=== PATIENT | male | born 1950 | race Caucasian/White ===

== ENCOUNTER → 2018-07-20 | Outpatient (CLI) | payer OTHER ==
[~2018-07-20] MED LIST: ALLOPURINOL 10100 M1 PO; GLUMETZA500 PO; GLYBURIDE 5 MG T5 M1 PO; LEVOTHYROXINE0.05 MG PO; LOSARTAN-HCTZ1 EAC2 PO; LOVASTAT20 PO
--- NOTE | ~2018-07-20 | EEG ---
[address] [address] EEG STUDY REPORT Name: KIKO SALDANA Room: [facility]#: [id number] Admission: 07/20/18 Attend Phys: Rad Larkin MD Discharge: Date of : 46 Report #: [id number] THIS REPORT FOR: //name// CC: Rad Larkin DATE OF SERVICE: 07/20/2018 This patient is being evaluated for tremor. EEG was done by placing the electrodes by standard 10-20 system of electrode placement. Both referential and sequential montages were used for recording. Background activity in this patient's EEG is about 10-11 Hz and 30 microvolt. The patient became drowsy and that is associated with bilateral slowing and vertex sharp waves. Photic stimulation was unremarkable. Throughout the record, no active epileptiform activity was noticed. IMPRESSION: This patient's EEG is within normal limits. Thank you very much for this referral. By: [id number] Lamas MD /nt
== END ==
LOC: M.MRI 07-08 12:09 → M.CRD 13:00 → M.MRI 14:30
DX: R25.1 Tremor, unspecified (principal); E11.9 Type 2 diabetes mellitus without complications; E03.9 Hypothyroidism, unspecified

== ENCOUNTER 2019-10-22 06:50 | Inpatient (IN) | payer OTHER ==
[~2019-10-22] VITALS: Ht 182.9 cm; Wt 90.3 kg
--- NOTE | ~2019-10-22 | CON ---
[address] [address] CONSULTATION Name: KIKO SALDANA Room: [address] IN M.R.#: [id number] Admission: 10/22/19 Attend Phys: Lee Hameed MD Discharge: Date of : 46 Report #: [id number] THIS REPORT FOR: //name// cc: Rad Larkin MD, David L. MD ~ THIS REPORT FOR: //name// CC: Rad Hameed DATE OF SERVICE: 10/23/2019 NEPHROLOGY CONSULTATION CONSULTING PHYSICIAN: Dr. Hameed. REASON FOR NEPHROLOGY CONSULTATION: Elevated creatinine. REASON FOR ADMISSION: Weakness and hypoglycemia. HISTORY OF PRESENT ILLNESS: This is a 69-year-old male with past medical history of type 2 diabetes, the patient states that it is usually controlled, denies having retinopathy, history of parkinsonism, remote history of kidney stones that was many years ago, history of proteinuria and his baseline creatinine is not known, came in because of feeling very weak. His blood sugar was found to be low, it was around 59. He was given dextrose water and his sugars are better this morning. His metformin was also held. His blood pressure was also found to be elevated 195 systolic and he was given hydralazine IV pushes. His losartan/hydrochlorothiazide was held. He denies using any NSAIDs at home. Denies having any kidney problems, but again as mentioned before his baseline creatinine is not known. He has also been having some swelling around his ankles. No shortness of breath and no heart problems that he reports of. His potassium has also been running towards the lower side. He lives with his at home and does not drink much water. For the last couple of months, he has been having stools once a day, but this has been a little bit loose. ALLERGIES: No known drug allergies. REVIEW OF SYSTEMS: As mentioned in history of present illness, otherwise 10-point review of systems done, negative. PAST MEDICAL AND SURGICAL HISTORY: Includes Parkinson disease, history of kidney stones that was many years ago, diabetes type 2 denies having retinopathy, hypertension, and likely chronic kidney disease, his creatinine was 1.5 in 2016 and is 2.0 [place] [address] CONSULTATION Name: KIKO SALDANA Room: [address]#: [id number] Admission: 10/22/19 Attend Phys: Lee Hameed MD Discharge: Date of : 46 Report #: [id number] HOME MEDICATIONS: Include metformin, glyburide, levothyroxine, lovastatin, losartan, hydrochlorothiazide, and allopurinol. FAMILY HISTORY: Reviewed, noncontributory in this situation. SOCIAL HISTORY: He is a former smoker, does not use recreational drugs. Does not use alcohol. PHYSICAL EXAMINATION: VITAL SIGNS: Blood pressure is 176/70, pulse rate is 86, temperature is 36.9, respiratory rate is 18, and pulse ox was 100% on room air. GENERAL: He is awake, alert, and oriented x 3. HEAD AND EYES: Atraumatic, normocephalic. EARS, NOSE, AND THROAT: Normal ears and nose. Mucous membranes are moist. NECK: No JVD. CHEST: Bilaterally clear to auscultation anteriorly. No crackles or wheezing. CARDIOVASCULAR: S1 and S2, normal. Murmurs could not be heard or rubs could not be heard. ABDOMEN: Soft and nondistended. There is a little bit of dullness in the suprapubic area. LOWER EXTREMITIES: There is around 1+ edema around his ankles. NEUROLOGICAL FUNCTION: Moving all his extremities. He is alert and oriented x 3, has resting tremors in upper extremities because of parkinsonism. PSYCHIATRIC: Mood seems to be normal. LABORATORY DATA: WBC 5.5, hemoglobin 11.3, and platelet count is 198. Sodium is 146, potassium is 3.4, creatinine is 2.2 and UPCR was 4.7 grams and other labs are reviewed. IMAGING: Renal ultrasound and chest x-ray were reviewed. ASSESSMENT: 1. Elevated creatinine, this is likely chronic kidney disease stage 3 because his creatinine was 1.5 in 2016, but we will need to find out his baseline creatinine. Creatinine was 2.1 on admission and it is 2.2 now. UA reviewed 11-20 rbc's per high power field with 3+ protein, UPCR around 4.7 grams. We will order serological workup including workup for microscopic hematuria. Renal ultrasound showed evidence of increased renal cortical echogenicity, chronic kidney disease and right kidney cyst. No evidence of any obstruction. His losartan/hydrochlorothiazide is on hold right now. Chronic kidney disease likely due to diabetes and hypertension. 2. History of diabetes. The patient came with hypoglycemia, I have ordered hemoglobin A1c. 3. Hypertension. Blood pressure does not seem to be controlled. 4. Bilateral ankle swelling, likely connected to his proteinuria with prolonged [facility] [address] [place] [address] CONSULTATION Name: KIKO SALDANA Room: [address] IN Steven.#: [id number] Admission: 10/22/19 Attend Phys: Lee Hameed MD Discharge: Date of : 46 Report #: [id number] hypertension, LVH is also a possibility, so I have also ordered an echocardiogram. 5. Mild hypernatremia. 6. Mild hypokalemia. PLAN: 1. Check a bladder scan to rule out urinary retention. 2. Try to find the baseline creatinine. 3. I have changed IV fluids to half normal saline and decrease rate is 75 mL an hour. 4. I have ordered an echocardiogram just to evaluate his ejection fraction because we do not have a baseline on him. 5. We will check again A1c on him. 6. Potassium is being replaced. 7. Keep holding losartan/hydrochlorothiazide for now until we ascertain his baseline creatinine, I have ordered nifedipine and hydralazine for him. 8. I am also going to order some serological workup for hematuria and would also check serum immunofixation, serum kappa/lambda light-chain ratio. Thank you for this consultation. We will continue to follow with you. Discussed with the patient and nurse. By: [id number] Brannon MD /nt
[2019-10-22 06:50] VITALS: BP 195/103
[~2019-10-22 06:50] MED LIST changes: -LEVOTHYROXINE0.05 MG PO; +SYNTHROID50 MCG PO
[2019-10-22 07:19] LABS: ABSOLUTE EOSINOPHILS 0.3 thou/uL (0.0-0.7); ABSOLUTE LYMPHOCYTES 0.9 thou/uL (0.8-5.3); ABSOLUTE MONOCYTES 0.2 thou/uL (0.0-1.2); BASOPHILS 0.8 %; HEMATOCRIT 31.6 % (42.0-52.0); HEMOGLOBIN 11.3 gm/dL (14.0-18.0); LYMPHOCYTES 16.1 %; MCH 33.2 pg (26.0-34.0); MCHC 35.7 g/dL (28.0-37.0); MCV 92.9 fL (80.0-100.0); MONOCYTES 3.9 %; MPV 8.7 fl. (7.2-11.1); NUCLEATED RBCS 0 /100WBC; PLATELET COUNT* 198 thou/uL (150-400); POLYS 73.2 %; RDW-CV 13.4 % (10.5-14.5); WBC 5.5 thou/uL (4.0-11.0)
[2019-10-22 07:27] LABS: CALCIUM 8.3 mg/dL (8.5-10.1); CREATININE 2.1 mg/dL (0.6-1.3); POTASSIUM 3.2 mmol/L (3.5-5.1)
[2019-10-22 07:28] LABS: APTT 24.9 Seconds (25.0-31.3); PROTIME 10.7 Seconds (9.20-11.50)
[2019-10-22 07:38] LABS: ALBUMIN 3.5 g/dL (3.4-5.0); TOTAL BILIRUBIN 0.9 mg/dL (<0.1-1.0); TOTAL PROTEIN 6.8 g/dL (6.4-8.2)
[2019-10-22 10:12] VITALS: BP 160/79
[2019-10-22 10:29] VITALS: BP 175/90
--- NOTE | 2019-10-22 11:20 | NUR ---
PT ADMITTED WITH HYOPGLYCEMIA. PT ALERT AND ORIENTED. PT RESTING IN BED. PT ORIENTED TO ROOM. VITALS STABLE. PT DENIES ANY NEEDS AT THIS TIME. WILL CONTINUE TO MONITOR.
--- NOTE | 2019-10-22 12:59 | EKG ---
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
--- NOTE | 2019-10-22 17:41 | NUR ---
PT REMAINED ALERT AND ORIENTED. PT RESTING IN BED. AWAITING PT TO CALL OUT TO OBTAIN URINE SAMPLE. PT BP ELEVATED, PHYSICIAN NOTIFIED, NO RESPONSE. POTASSIUM REPLACED ORDERED. FALL RISK PRECAUTIONS IN PLACE. HOURLY ROUNDING COMPLETED. WILL CONTINUE TO MONITOR.
[2019-10-22 18:45] VITALS: BP 184/77
[2019-10-22 20:00] VITALS: BP 178/75
[2019-10-22 22:47] LABS: URINE BILIRUBIN NEGATIVE (Negative); URINE BLOOD TRACE (Negative); URINE CLARITY CLEAR; URINE COLOR YELLOW; URINE GLUCOSE-RANDOM 1+ (Negative); URINE KETONES NEGATIVE (Negative); URINE LEUKOCYTES-REFLEX NEGATIVE (Negative); URINE NITRITE-REFLEX NEGATIVE (Negative); URINE PROTEIN 3+ (Negative); URINE UROBILINOGEN 0.2 E.U./dl (0.2-1.0)
[2019-10-22 23:03] LABS: BACTERIA-REFLEX 1-9 Few /HPF (None Seen); CASTS None Seen /LPF (None Seen); CRYSTALS None Seen /LPF (None Seen); MUCUS 0-3 Light strn/LPF (None Seen); SQUAMOUS 0-3 Few /LPF (0-3); URINE WBC-REFLEX 0-5 Rare /HPF (0-5)
[2019-10-23] VITALS: BP 176/70
--- NOTE | 2019-10-23 04:15 | NUR ---
ASSUMED CARE OF PT 10/22/19. PT A&OX4, ON ROOM AIR, PRN HYDRALAZINE GIVEN FOR HIGH BLOOD PRESSURE ORDERED. PHYSICIAN CONTACTED D/T HIGH BLOOD GLUCOSE AND ON D5NS - NEW ORDERS GIVEN. ASSESSMENTS AND HOURLY ROUNDINGS COMPLETE, WILL CONTINUE TO MONITOR.
[2019-10-23 05:59] LABS: CREATININE 2.2 mg/dL (0.6-1.3); MAGNESIUM 1.1 mg/dL (1.8-2.4); POTASSIUM 3.4 mmol/L (3.5-5.1)
[2019-10-23 07:59] VITALS: BP 164/82
[2019-10-23 16:30] VITALS: BP 137/69
--- NOTE | 2019-10-23 17:02 | NUR ---
PT A&Ox4. VITALS STABLE. IV PATENT. UP AD TIM. DENIED PAIN. TOLERATING MEALS. CALL LIGHT WITHIN REACH. WILL CONTINUE TO MONITOR.
[2019-10-23 19:44] VITALS: BP 94/73
--- NOTE | 2019-10-24 04:23 | NUR ---
ASSUMED CARE OF PT 10/23/19 AT APPROX 1930. PT A&OX4, ON ROOM AIR, VSS, PT SLEEPING BETTER THIS NIGHT THAN LAST NIGHT. ASSESSMENTS AND HOURLY ROUNDINGS COMPLETE. WILL CONTINUE TO MONITOR.
[2019-10-24 04:55] LABS: CALCIUM 8.8 mg/dL (8.5-10.1); CREATININE 2.6 mg/dL (0.6-1.3); MAGNESIUM 1.3 mg/dL (1.8-2.4)
[2019-10-24 04:57] LABS: POTASSIUM 4.5 mmol/L (3.5-5.1)
[2019-10-24 08:33] VITALS: BP 138/67
[2019-10-24 16:23] VITALS: BP 121/94
--- NOTE | 2019-10-24 17:44 | NUR ---
PT A&Ox4. VITALS OLAYINKA. IV PATENT. MAG REPLACED. TOLERATING MEALS. LONG ACTING INSULIN STARTED. UP AD TIM. DENIED PAIN. DENIED N/V. TAUGHT HOW TO ADMINISTER INSULIN TO SELF. CALL LIGHT WITHIN REACH. WILL CONTINUE TO MONITOR.
[2019-10-24 19:50] VITALS: BP 138/68
[2019-10-24 22:07] LABS: COMPLEMENT-C4 20 mg/dL (14-44); IgA 243 mg/dL (61-437); IgG 537 mg/dL (603-1613); IgM 29 mg/dL (15-143)
[2019-10-25 02:07] LABS: GLYCOHEMOGLOBIN (HGB A1C) 5.2 % (4.8-5.6); HEPATITIS B SURFACE AG Negative (Negative)
--- NOTE | 2019-10-25 04:23 | NUR ---
ASSUMED CARE OF PT 10/24/19 AT APPROX 1930. PT A&OX4, ON ROOM AIR, VSS. PT C/O HEART BURN - PHYSICIAN CONTACTED, NEW ORDER GIVEN FOR CALCIUM CARBONATE. PT SLEEPING WELL. WILL CONTINUE TO MONITOR.
[2019-10-25 07:35] VITALS: BP 155/62
[2019-10-25 08:08] LABS: CALCIUM 8.9 mg/dL (8.5-10.1); CREATININE 2.8 mg/dL (0.6-1.3); POTASSIUM 4.7 mmol/L (3.5-5.1)
[2019-10-25 16:30] VITALS: BP 135/69
--- NOTE | 2019-10-25 17:06 | NUR ---
PT REMAIENED ALERT AND ORIENTED. PT RESTING IN ROOM. UP TO CHAIR. HATS IN TOILET TO COLLECT URINE FOR I&O'S. PT DENIED ANY NEEDS. FALL RISK PRECAUTIONS IN PLACE. HOURLY ROUNDING COMPLETED. WILL CONTINUE TO MONITOR.
[2019-10-25 19:40] VITALS: BP 144/75
[2019-10-26 05:16] LABS: CALCIUM 8.5 mg/dL (8.5-10.1); CREATININE 2.6 mg/dL (0.6-1.3); MAGNESIUM 1.7 mg/dL (1.8-2.4); POTASSIUM 4.4 mmol/L (3.5-5.1)
--- NOTE | 2019-10-26 06:37 | NUR ---
PT SLEPT WELL THIS SHIFT. ALERT AND ORIENTED. AD TIM. MEDS GIVEN PER EMAR. RESTING BODY TREMOR. I&O's. DAILY WEIGHT. EDEMA TO BLE. LISPRO INSULIN GIVEN THIS SHIFT. MG+ REPLACEMENT IN PLACE PER PROTOCOL. JIVE DEVELOPER 2.6 THIS AM. CALL LIGHT WITHIN REACH. HOURLY ROUNDINGS MADE. WILL CONTINUE TO MONITOR.
[2019-10-26] MEDS ORDERED: SYNTHROID75 MCG PO (08:04)
[2019-10-26] MEDS ORDERED: LANTUSSOLASTAR SUBQ (08:04)
[2019-10-26] MEDS ORDERED: NOVOLOG FL100 UNIT/M SUBQ (08:04)
[2019-10-26] MEDS ORDERED: COREG6.25 MG PO (08:04)
[2019-10-26] MEDS ORDERED: INSULIN SUPPLIES (08:06)
[2019-10-26 09:18] VITALS: BP 168/74
[2019-10-26 12:08] LABS: KAPPA FREE LIGHT CHAINS 38.7 mg/L (3.3-19.4); LAMBDA FREE LIGHT CHAINS 21.3 mg/L (5.7-26.3)
[2019-10-26 14:17] VITALS: BP 168/74
--- NOTE | 2019-10-26 16:05 | 2DMMODE ---
[place] [address] 2 D/M-MODE ECHOCARDIOGRAM Name: KIKO SALDANA Grayson Room: [address] IN M.R.#: [id number] Admission: 10/22/19 Attend Phys: Lee Hameed, Discharge: 10/26/19 Date of : 46 Date of Service: 10/26/19 1603 Report #: [id number] THIS REPORT FOR: cc: Rad Larkin MD, David L. MD Liston, Michael J. MD [facility] ~ APPROVED REPORT Study performed: 10/26/2019 10:09:28 EXAM: Comprehensive 2D, Doppler, and color-flow Echocardiogram Patient Location: In-Patient BSA: 2.13 HR: 72 bpm BP: 168/74 mmHg Other Information Study Quality: Good Indications Hypertension/HDD 2D Dimensions IVSd: 14.45 (7-11mm) LVOT Diam: 22.93 (18-24mm) LVDd: 46.31 mm PWd: 12.46 (7-11mm) Ascending Ao: 37.05 (22-36mm) LVDs: 38.51 (25-40mm) Aortic Root: 33.55 mm Volumes Left Atrial Volume (Systole) LA ESV Index: 22.90 mL/m2 Aortic Valve AoV Peak Jason.: 1.32 m/s AO Peak Gr.: 6.93 mmHg LVOT Max P.42 mmHg AO Mean Gr.: 3.89 mmHg LVOT Mean P.19 mmHg LVOT Max V: 1.05 m/s AO V2 VTI: 28.60 cm LVOT Mean V: 0.68 m/s MILTON (VTI): 3.80 cm2 LVOT V1 VTI: 26.29 cm Mitral Valve E/A Ratio: 1.16 [place] [address] 2 D/M-MODE ECHOCARDIOGRAM Name: KIKO SALDANA Room: [address] IN .R.#: [id number] Admission: 10/22/19 Attend Phys: Lee Hameed, Discharge: 10/26/19 Date of : 46 Date of Service: 10/26/19 1603 Report #: [id number] MV Decel. Time: 234.13 ms MV E Max Jason.: 1.04 m/s MV PHT: 67.90 ms MVA (PHT): 3.24 cm2 TDI E/Lateral E': 7.43 E/Medial E': 9.45 Medial E' Jason.: 0.11 m/s Lateral E' Jason.: 0.14 m/s Pulmonary Valve PV Peak Jason.: 0.87 m/s PV Peak Gr.: 3.01 mmHg Tricuspid Valve RAP Estimate: 20.00 mmHg TR Peak Gr.: 24.54 mmHg RVSP: 44.54 mmHg PA Pressure: 44.54 mmHg Left Ventricle The left ventricle is normal size. There is normal LV segmental wall motion. There is normal left ventricular wall thickness. Left ventricular systolic function is normal. LVEF is 55-60%. The left ventricular diastolic function is normal. Right Ventricle The right ventricle is normal size. The right ventricular systolic function is normal. Atria The left atrium size is normal. The right atrium size is normal. Aortic Valve The aortic valve is normal in structure. No aortic regurgitation is present. There is no aortic valvular stenosis. Mitral Valve The mitral valve is normal in structure. There is no mitral valve regurgitation noted. No evidence of mitral valve stenosis. Tricuspid Valve The tricuspid valve is normal in structure. Trace tricuspid regurgitation. Pulmonic Valve The pulmonary valve is normal in structure. [place] [address] 2 D/M-MODE ECHOCARDIOGRAM Name: KIKO SALDANA Room: [address] IN .#: [id number] Admission: 10/22/19 Attend Phys: Lee Hameed, Discharge: 10/26/19 Date of : 46 Date of Service: 10/26/19 1603 Report #: [id number] valvular regurgitation. Great Vessels The aortic root is normal in size. IVC is dilated. Pericardium There is no pericardial effusion. <Conclusion> The left ventricle is normal size. There is normal left ventricular wall thickness. Left ventricular systolic function is normal. LVEF is 55-60%. The left ventricular diastolic function is normal. Trace tricuspid regurgitation. IVC is dilated. <ELECTRONICALLY SIGNED> By: Leoncio Herbert MD, FACC 10/26/19 1603 1603 1603 Leoncio Herbert MD, FACC /INF
[2019-10-27 10:08] LABS: GLOMERULR BASEM MEMBRN AB 3 units (0-20)
[2019-10-27 17:08] LABS: ANA INTERPRETATION Negative (())
== END 2019-10-26 15:39 | disposition home or self-care (01) | DRG 638 ==
LOC: M.ERS 06:50 → M.TBA-ER 09:46 → M.3W 09:46
PROVIDERS: Family Medicine; Internal Medicine; ADMIT Internal Medicine
DX: E09.649 Drug or chemical induced diabetes mellitus with hypoglycemia without coma (principal); E87.0 Hyperosmolality and hypernatremia; N17.0 Acute kidney failure with tubular necrosis; E87.6 Hypokalemia; G20 Parkinson's disease; R80.9 Proteinuria, unspecified; Y92.89 Other specified places as the place of occurrence of the external cause; T38.3X5A Adverse effect of insulin and oral hypoglycemic [antidiabetic] drugs, initial encounter; Z87.442 Personal history of urinary calculi; Z79.899 Other long term (current) drug therapy; Z87.891 Personal history of nicotine dependence; E11.22 Type 2 diabetes mellitus with diabetic chronic kidney disease; I12.9 Hypertensive chronic kidney disease with stage 1 through stage 4 chronic kidney disease, or unspecified chronic kidney disease; N18.4 Chronic kidney disease, stage 4 (severe); I48.91 Unspecified atrial fibrillation

== ENCOUNTER → 2020-01-11 | Outpatient (CLI) | payer OTHER ==
[~2020-01-11] MED LIST changes: +COREG6.25 MG PO; +INSULIN SUPPLIES; +LANTUSSOLASTAR SUBQ; +NOVOLOG FL100 UNIT/M SUBQ; +SYNTHROID75 MCG PO
== END ==
LOC: M.RAD 14:48
PROVIDERS: ATTEND Internal Medicine
DX: R06.02 Shortness of breath (principal)

== ENCOUNTER 2020-03-06 21:48 | Inpatient (IN) | payer OTHER ==
[~2020-03-06] VITALS: Ht 182.9 cm; Wt 88.7 kg
[2020-03-06 21:57] VITALS: BP 199/108
[2020-03-06 22:18] LABS: HEMATOCRIT 29.1 % (42.0-52.0); HEMOGLOBIN 10.3 gm/dL (14.0-18.0); MCH 34.3 pg (26.0-34.0); MCHC 35.3 g/dL (28.0-37.0); MPV 10.3 fl. (7.2-11.1); NUCLEATED RBCS 0 /100WBC; PLATELET COUNT* 138 thou/uL (150-400); RDW-CV 14.6 % (10.5-14.5); WBC 5.4 thou/uL (4.0-11.0)
[2020-03-06 22:24] LABS: ANION GAP 8 mmol/L (7-16); BUN 34 mg/dL (7-18); CALCIUM 8.6 mg/dL (8.5-10.1); CHLORIDE 106 mmol/L (98-107); CO2 26 mmol/L (21-32); CREATININE 3.5 mg/dL (0.6-1.3); GLUCOSE 124 mg/dL (70-99); POTASSIUM 4.3 mmol/L (3.5-5.1); SODIUM 140 mmol/L (136-145)
[2020-03-06 22:28] LABS: APTT 26.1 Seconds (25.0-31.3); INR 1.1; PROTIME 11.2 Seconds (9.20-11.50)
[2020-03-06 22:42] LABS: ALBUMIN 3.3 g/dL (3.4-5.0); ALKALINE PHOSPHATASE 74 U/L (46-116); NT-PRO BRAIN NAT PEPTIDE > 35000 pg/mL (<300); SGOT 19 U/L (15-37); SGPT 37 U/L (30-65); TOTAL BILIRUBIN 0.6 mg/dL (<0.1-1.0); TOTAL PROTEIN 6.4 g/dL (6.4-8.2)
[2020-03-06 22:51] LABS: ABSOLUTE EOSINOPHILS 0.7 thou/uL (0.0-0.7); ABSOLUTE LYMPHOCYTES 1.1 thou/uL (0.8-5.3); ABSOLUTE MONOCYTES 0.1 thou/uL (0.0-1.2); ABSOLUTE NEUTROPHILS 3.5 thou/uL (1.6-8.1); PLATELET ESTIMATE ADEQUATE
[2020-03-07] VITALS (9 sets, daily range): BP systolic 106–192; BP diastolic 50–100
--- NOTE | 2020-03-07 09:40 | EKG ---
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1950 Requested By: Anjum Mcdonnell Order Number: [id number] MD: Rad Zarco Measurements Intervals [place] Rate: 110 P: [place]: QRS: 74 QRSD: 92 T: 229 QT: 439 QTc: 595 Interpretive Statements Atrial flutter/fibrillation Probable LVH with secondary repol abnrm Prolonged QT interval Baseline wander in lead(s) II,III Compared to ECG 10/22/2019 07:02:21 Prolonged QT interval now present Electronically Signed On 03-07-2020 9:40:04 CDT by Rad Zarco [email or web address] <ELECTRONICALLY SIGNED> By: Rad Zarco MD, FACC 03/07/20 0940 02 02 Rad Zarco MD, FAC /EPI
[2020-03-07 11:01] LABS: CREATININE 3.5 mg/dL (0.6-1.3); MAGNESIUM 1.5 mg/dL (1.8-2.4); POTASSIUM 4.1 mmol/L (3.5-5.1)
[2020-03-07 12:22] LABS: CHOLESTEROL 138 mg/dL (<200); HDL CHOLESTEROL 60 mg/dL (>40); LDL CHOLESTEROL 71 mg/dL (<100); TC:HDL 2.3 Ratio (Not establshd); TRIGLYCERIDE 37 mg/dL (<150); VLDL 7 mg/dL (<40)
[2020-03-07 12:23] LABS: SERUM ASSESSMENT Clear
--- NOTE | 2020-03-07 15:39 | 2DMMODE ---
[place] [address] 2 D/M-MODE ECHOCARDIOGRAM Name: KIKO SALDANA Grayson Room: [address] IN M.R.#: [id number] Admission: 03/06/20 Attend Phys: Lee Hameed, Discharge: Date of : 46 Date of Service: 03/07/20 1539 Report #: [id number] THIS REPORT FOR: cc: Efraín Posadas MD, Dean L. MD Blick, David R. MD [facility] ~ APPROVED REPORT Study performed: 03/07/2020 14:07:34 EXAM: Comprehensive 2D, Doppler, and color-flow Echocardiogram Patient Location: Bedside BSA: 2.11 HR: 75 bpm BP: 185/84 mmHg Other Information Study Quality: Excellent Indications Congestive Heart Failure Dyspnea Hypertension/HDD IVC Evaluation, PA Pressure 2D Dimensions IVSd: 15.99 (7-11mm) LVOT Diam: 21.86 (18-24mm) LVDd: 53.49 mm PWd: 13.43 (7-11mm) Ascending Ao: 36.37 (22-36mm) LVDs: 38.38 (25-40mm) Aortic Root: 31.81 mm Tricuspid Valve RAP Estimate: 15.00 mmHg TR Peak Gr.: 50.48 mmHg RVSP: 65.48 mmHg PA Pressure: 65.48 mmHg Left Ventricle The left ventricle is normal size. There is normal LV segmental wall motion. Mild concentric left ventricular hypertrophy. Left ventricular systolic function is borderline. LVEF is 50-55%. [place] [address] 2 D/M-MODE ECHOCARDIOGRAM Name: KIKO SALDANA Room: [address] IN [facility]#: [id number] Admission: 03/06/20 Attend Phys: Lee Hameed, Discharge: Date of : 46 Date of Service: 03/07/20 1539 Report #: [id number] The right ventricle is normal size. The right ventricular systolic function is normal. Atria The left atrium size is normal. The right atrium size is normal. Aortic Valve The aortic valve is normal in structure. No aortic regurgitation is present. There is no aortic valvular stenosis. Mitral Valve The mitral valve is normal in structure. There is no mitral valve regurgitation noted. No evidence of mitral valve stenosis. Tricuspid Valve The tricuspid valve is normal in structure. Mild tricuspid regurgitation. estimated pa pressure 55 mm Hg Pulmonic Valve The pulmonary valve is normal in structure. There is trace pulmonic valvular regurgitation. Great Vessels The aortic root is normal in size. IVC is dilated. Pericardium There is no pericardial effusion. <Conclusion> Mild concentric left ventricular hypertrophy. LVEF is 50-55%. Mild tricuspid regurgitation. estimated pa pressure 55 mm Hg <ELECTRONICALLY SIGNED> By: Rad Zarco MD, FACC 03/07/20 1539 153 153 Rad Zarco MD, FACC /INF
[2020-03-08] VITALS: BP 159/74
[2020-03-08 04:00] VITALS: BP 173/92
[2020-03-08 05:58] LABS: ABSOLUTE LYMPHOCYTES 0.9 thou/uL (0.8-5.3); ABSOLUTE MONOCYTES 0.3 thou/uL (0.0-1.2); ABSOLUTE NEUTROPHILS 4.8 thou/uL (1.6-8.1); BASOPHILS 0.3 %; EOSINOPHILS 0.4 %; HEMATOCRIT 26.4 % (42.0-52.0); HEMOGLOBIN 9.4 gm/dL (14.0-18.0); LYMPHOCYTES 14.8 %; MCH 34.2 pg (26.0-34.0); MCHC 35.4 g/dL (28.0-37.0); MCV 96.8 fL (80.0-100.0); MONOCYTES 5.3 %; MPV 10.4 fl. (7.2-11.1); NUCLEATED RBCS 0 /100WBC; PLATELET COUNT* 119 thou/uL (150-400); POLYS 79.2 %; RBC 2.73 mil/uL (4.50-6.00); RDW-CV 14.4 % (10.5-14.5)
[2020-03-08 06:39] LABS: CALCIUM 8.8 mg/dL (8.5-10.1); CREATININE 3.6 mg/dL (0.6-1.3); POTASSIUM 4.2 mmol/L (3.5-5.1)
[2020-03-08 08:00] VITALS: BP 171/83
--- NOTE | 2020-03-08 14:14 | EKG ---
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
[2020-03-08 18:00] VITALS: BP 119/81
[2020-03-08 20:00] VITALS: BP 174/76
[2020-03-08 20:05] LABS: HEMOGLOBIN 9.6 gm/dL (14.0-18.0); MCH 34.8 pg (26.0-34.0); MCHC 35.5 g/dL (28.0-37.0); MPV 10.2 fl. (7.2-11.1); RBC 2.75 mil/uL (4.50-6.00); RDW-CV 14.5 % (10.5-14.5); WBC 5.1 thou/uL (4.0-11.0)
[2020-03-08 22:48] LABS: URINE BILIRUBIN NEGATIVE (Negative); URINE BLOOD NEGATIVE (Negative); URINE CLARITY CLEAR; URINE COLOR YELLOW; URINE GLUCOSE-RANDOM 1+ (Negative); URINE KETONES NEGATIVE (Negative); URINE LEUKOCYTES NEGATIVE (Negative); URINE NITRITE NEGATIVE (Negative); URINE PROTEIN 2+ (Negative); URINE UROBILINOGEN 0.2 E.U./dl (0.2-1.0)
[2020-03-08 22:55] LABS: BACTERIA 1-9 Few /HPF (None Seen); CASTS None Seen /LPF (None Seen); CRYSTALS None Seen /LPF (None Seen); MUCUS 0-3 Light strn/LPF (None Seen); SQUAMOUS 0-3 Few /LPF (0-3); URINE RBC 3-10 Few /HPF (0-2); URINE WBC None Seen /HPF (0-5)
[2020-03-09] VITALS: BP 117/66
[2020-03-09 05:27] VITALS: BP 157/75
[2020-03-09 05:31] LABS: CREATININE 3.7 mg/dL (0.6-1.3); MAGNESIUM 1.6 mg/dL (1.8-2.4); POTASSIUM 3.9 mmol/L (3.5-5.1)
[2020-03-09 05:39] LABS: % SATURATION 21 % (20-39); IRON 53 ug/dL (50-175)
[2020-03-09 08:00] VITALS: BP 145/54
[2020-03-09] MEDS ORDERED: BUMETANIDE 1 MG1 M1 PO (09:40)
[2020-03-09] MEDS ORDERED: PREDNISONE 10 M10 MG PO (09:40)
[2020-03-09] MEDS ORDERED: HYDRALAZINE 2525 MG PO (09:40)
[2020-03-09 12:00] VITALS: BP 161/73
[2020-03-09 13:07] VITALS: BP 161/73
--- NOTE | 2020-03-10 12:34 | CON ---
[address] [address] CONSULTATION Name: KIKO SALDANA Room: [address] IN M.R.#: [id number] Admission: 03/06/20 Attend Phys: Lee Hameed MD Discharge: 03/09/20 Date of : 46 Report #: [id number] THIS REPORT FOR: //name// cc: Efraín Posadas MD, Dean L. MD ~ THIS REPORT FOR: //name// CC: Efraín Hameed DATE OF SERVICE: 03/08/2020 NEPHROLOGY CONSULTATION CONSULTING PHYSICIAN: Soledad Cardozo NP REASON FOR NEPHROLOGY CONSULTATION: Fluid overload, chronic kidney disease stage 4 with acute kidney injury. REASON FOR ADMISSION: Shortness of breath and lower extremity swelling. HISTORY OF PRESENT ILLNESS: This is a very pleasant 69-year-old male with past medical history of diabetes type 2 which has been controlled, hypertension which has not been controlled, chronic kidney disease stage 4, baseline creatinine has been more around 2.6-3, history of Parkinson's disease, came in because of couple-week episodes of shortness of breath, not associated with exertion, no orthopnea, but lower extremity swelling. He has gained about 5-10 pounds probably in a couple of weeks, but his history was very vague. He says that sometimes he gains 5 pounds overnight but then it goes away. His ejection fraction has been normal, in fact we checked again yesterday and it was 55-60%, but he does have evidence of high pulmonary pressures and dilated IVC. Cardiology is also evaluating him. He follows with Dr. Cameron's office, one of my partners at [facility]. He was recently seen in December and at that time his creatinine was 3.1, but he does have history of nephrotic range proteinuria, it was about 5 grams at that time. His blood pressure was also high yesterday, it was 190 systolic, it has come down a little bit 170 systolic. He did get a dose of Lasix 40 mg IV yesterday and he does feel his swelling has gone down. Urine output reported was only around 200 mL overnight. I am not sure if everything was documented. He was not retaining urine, only 140 mL on the bladder scan yesterday. He says he watches his sodium intake. ALLERGIES: No known drug allergies. REVIEW OF SYSTEMS: As mentioned in history of present illness, otherwise 10-point review [place] [address] CONSULTATION Name: KIKO SALDANA Room: [address] IN ..#: [id number] Admission: 03/06/20 Attend Phys: Lee Hameed MD Discharge: 03/09/20 Date of : 46 Report #: [id number] PAST MEDICAL AND SURGICAL HISTORY: Includes hypertension, not controlled; diabetes type 2, which is controlled; history of kidney stones, chronic kidney disease stage 4, baseline creatinine is more around 2.6-3; left eye cataract, Parkinson's disease, right eye cataract removed, gout, hypothyroidism, hyperlipidemia, and left second toe amputation. FAMILY HISTORY: [id number] and vascular disease. SOCIAL HISTORY: He lives at home. He is a former smoker, does not use recreational drugs. Does not use alcohol. HOME MEDICATIONS: Include allopurinol, lovastatin, Lantus insulin, NovoLog insulin, levothyroxine, and carvedilol. PHYSICAL EXAMINATION: VITAL SIGNS: Blood pressure 173/93, respiratory rate is 18, he is afebrile, pulse rate is 68, respiratory rate is 18, and pulse ox is 96% and he is on room air. GENERAL: He is awake, alert, and oriented x 3. HEAD AND EYES: Atraumatic and normocephalic. Conjunctivae normal. EARS, NOSE, AND THROAT: Normal ears and nose. Mucous membranes seem to be moist. NECK: No JVD seen. CHEST: Bilaterally clear to auscultation posteriorly. No crackles or wheezing heard. CARDIOVASCULAR: S1, S2 normal. No murmurs. ABDOMEN: Soft, nondistended, and nontender. Bowel sounds are present. GENITOURINARY: No CVA tenderness. EXTREMITIES: Lower extremities, there is about 2+ edema present bilaterally. NEUROLOGICAL FUNCTION: Grossly intact. He does have resting tremors or Parkinson's in his upper extremities. PSYCHIATRIC: Mood seems to be absolutely pleasant and normal. Affect is normal. LABORATORY DATA: WBC 6.0, hemoglobin is 9.4, platelet count is 119. Sodium is 138, potassium is 4.2, and creatinine is 3.6 up from 3.5 yesterday. Other labs were reviewed. Albumin was 3.3. IMAGING: Chest x-ray was reviewed. ASSESSMENT: 1. Acute kidney injury on chronic kidney disease stage 4, baseline creatinine is 2.63 and creatinine on admission was 3.5, definitely worse from his baseline. The patient has a history of nephrotic range proteinuria around 5 grams in December and at that time his creatinine was 3.1. He follows with Dr. Cameron at [facility], one of my colleagues. Renal ultrasound [place] [address] CONSULTATION Name: KIKO SALDANA Room: [address] IN .R.#: [id number] Admission: 03/06/20 Attend Phys: Lee Hameed MD Discharge: 03/09/20 Date of : 46 Report #: [id number] checked. Not found to be retaining urine. He did present with hypervolemia. 2. Anemia and iron parameters will need to be checked. 3. Hypervolemia in the setting of nephrotic range proteinuria. His ejection fraction is actually normal 55-60%, but he does have evidence of dilated IVC and pulmonary artery pressure is 55 mmHg. It is possible he has some acute on chronic diastolic congestive heart failure and Cardiology is following him. 4. Hypertension. Blood pressure is not controlled. 5. Diabetes type 2, controlled as per the patient. Defer to primary team for management. 6. Hyperlipidemia. 7. Hypothyroidism, ____ treating. 8. Parkinson's disease. PLAN: 1. It is not surprising that he has chronic kidney disease stage 4 and he is retaining some fluid now, especially with nephrotic range proteinuria. I am okay with giving him 40 mg IV Lasix this morning, but from this afternoon we will put him on Bumex 1 mg twice a day as his albumin is also towards the lower side. 2. Strict I's and O's, 2 g sodium diet, 1.8 liter fluid restriction a day, UA and renal ultrasound need to be checked. 3. We will check magnesium and basic metabolic panel in the morning. I will check iron studies as well. 4. Blood pressure should get right with diuresis. Otherwise, I will need to add more medicines. In fact, we will add hydralazine this morning as well. 5. The patient will need to be closely monitored. Creatinine will need to be monitored. He is closer to dialysis than before, but there is no acute need for dialysis. 6. We will continue to follow with him and discuss with the patient in detail. Discussed with the patient's nurse. <ELECTRONICALLY SIGNED> By: Munira Brannon MD 03/10/20 1234 0931 [id number] Brannon MD /nt
== END 2020-03-09 13:40 | disposition home or self-care (01) | DRG 291 ==
LOC: M.ERS 21:48 → M.TBA-ER 23:22 → M.2W 23:22
PROVIDERS: Family Medicine; Internal Medicine; Registered Nurse; ADMIT Internal Medicine; ATTEND Internal Medicine
DX: I13.0 Hypertensive heart and chronic kidney disease with heart failure and stage 1 through stage 4 chronic kidney disease, or unspecified chronic kidney disease (principal); I50.43 Acute on chronic combined systolic (congestive) and diastolic (congestive) heart failure; N17.0 Acute kidney failure with tubular necrosis; N18.4 Chronic kidney disease, stage 4 (severe); Z20.828 Contact with and (suspected) exposure to other viral communicable diseases; M10.9 Gout, unspecified; E03.9 Hypothyroidism, unspecified; E78.5 Hyperlipidemia, unspecified; D64.9 Anemia, unspecified; G20 Parkinson's disease; I48.91 Unspecified atrial fibrillation; I27.20 Pulmonary hypertension, unspecified; I25.10 Atherosclerotic heart disease of native coronary artery without angina pectoris; E11.22 Type 2 diabetes mellitus with diabetic chronic kidney disease; E87.70 Fluid overload, unspecified; Z87.442 Personal history of urinary calculi; Z98.42 Cataract extraction status, left eye; Z98.41 Cataract extraction status, right eye; Z89.422 Acquired absence of other left toe(s); Z83.3 Family history of diabetes mellitus; Z82.49 Family history of ischemic heart disease and other diseases of the circulatory system; Z87.891 Personal history of nicotine dependence; Z23 Encounter for immunization; Z79.899 Other long term (current) drug therapy

== ENCOUNTER → 2020-03-14 | Outpatient (CLI) | payer OTHER ==
[~2020-03-14] MED LIST changes: +BUMETANIDE 1 MG1 M1 PO; +HYDRALAZINE 2525 MG PO; +PREDNISONE 10 M10 MG PO
[2020-03-14 15:35] LABS: CALCIUM 8.4 mg/dL (8.5-10.1); CREATININE 4.1 mg/dL (0.6-1.3); POTASSIUM 4.6 mmol/L (3.5-5.1)
== END ==
LOC: M.LAB 14:49
PROVIDERS: ATTEND Nurse Practitioner
DX: N18.4 Chronic kidney disease, stage 4 (severe) (principal)

== ENCOUNTER 2020-03-23 12:12 | Inpatient (IN) | payer OTHER ==
[~2020-03-23] VITALS: Ht 182.9 cm; Wt 71.7 kg
--- NOTE | ~2020-03-23 | CON ---
[address] [address] CONSULTATION Name: KIKO SALDANA Room: [address] IN M.R.#: [id number] Admission: 03/23/20 Attend Phys: Lee Hameed MD Discharge: Date of : 46 Report #: [id number] THIS REPORT FOR: //name// cc: Efraín Posadas MD, Dean L. MD ~ NEPHROLOGY CONSULTATION CONSULTING PHYSICIAN: Lee Hameed MD REASON FOR CONSULTATION: Acute kidney injury. HISTORY OF PRESENT ILLNESS: A 69-year-old gentleman who was hospitalized here earlier this month and follows with Dr. Cameron as an outpatient for chronic kidney disease, comes in with weakness and was last seen in the office on 03/16. His discharge creatinine when he left the hospital was 3.7, it was 4.2 on admission, 4.2 again today. He currently has no complaints. He is eating well, has no shortness of breath. His lower extremity edema has improved significantly. REVIEW OF SYSTEMS: Constitutional, psych, heme, eyes, ENT, respiratory, cardiac, GI, , endocrine, all negative except as documented above. PAST MEDICAL HISTORY: Chronic kidney disease stage 4, diabetes type 2, hypertension, history of Parkinson's. FAMILY HISTORY: Positive for hypertension. SOCIAL HISTORY: Former smoker, quit around 1999. CURRENT MEDICATIONS: Reviewed. PHYSICAL EXAMINATION: VITAL SIGNS: Blood pressure is 151/51, pulse 52, respirations 17, temperature 36.4. GENERAL: No acute distress. EYES: Open. EARS: Externally normal. NECK: Supple. CARDIOVASCULAR: Slightly bradycardic. No rub. LUNGS: Diminished breath sounds. ABDOMEN: Soft. MUSCULOSKELETAL: No pitting edema. PSYCHIATRIC: Awake, alert. LABORATORY DATA: White cell count 4.4, hemoglobin 9.3, platelets 110. Sodium 140, potassium 4.3, chloride 104, bicarbonate 28, BUN 59, creatinine 4.2, glucose 114, calcium 9, and magnesium 1.9[place] [address] CONSULTATION Name: KIKO SALDANA Room: [address] IN [facility]#: [id number] Admission: 03/23/20 Attend Phys: Lee Hameed MD Discharge: Date of : 46 Report #: [id number] ASSESSMENT: 1. Acute kidney injury with creatinine 4.2, it was 3.7 on discharge on his March 09 discharge. 2. Chronic kidney disease stage 4, followed by Dr. Cameron as an outpatient, EF of 50-55% with pulmonary artery pressure of 55. 3. Hypertension. 4. Anemia of chronic kidney disease. 5. Diabetes type 2. 6. Parkinson's disease. 7. Proteinuria with urine protein creatinine ratio of 4.8. Previous workup done in September showed a negative hepatitis B, C, ROSA, ANCA, anti-GBM antibody, normal serum immunofixation and free light chain assay. PLAN: He may have some progressive kidney disease. No acute indications for dialysis at this time. We will discontinue IV Lasix. Check lab again in the a.m. We will follow along with you. Thank you for requesting my opinion in the care and management of this patient. By: [id number] [id number] Elena Portillo MD /nt
[2020-03-23 12:15] VITALS: BP 159/61
[2020-03-23 12:55] LABS: ABSOLUTE EOSINOPHILS 0.5 thou/uL (0.0-0.7); ABSOLUTE LYMPHOCYTES 0.6 thou/uL (0.8-5.3); ABSOLUTE MONOCYTES 0.4 thou/uL (0.0-1.2); ABSOLUTE NEUTROPHILS 5.5 thou/uL (1.6-8.1); BASOPHILS 0.7 %; EOSINOPHILS 6.5 %; HEMATOCRIT 27.1 % (42.0-52.0); HEMOGLOBIN 9.4 gm/dL (14.0-18.0); MCH 33.8 pg (26.0-34.0); MCHC 34.9 g/dL (28.0-37.0); MONOCYTES 5.7 %; MPV 9.6 fl. (7.2-11.1); NUCLEATED RBCS 0 /100WBC; PLATELET COUNT* 113 thou/uL (150-400); POLYS 78.1 %; RBC 2.79 mil/uL (4.50-6.00); RDW-CV 14.2 % (10.5-14.5)
[2020-03-23 13:17] LABS: CALCIUM 8.4 mg/dL (8.5-10.1); CREATININE 4.2 mg/dL (0.6-1.3); POTASSIUM 4.6 mmol/L (3.5-5.1)
[2020-03-23 13:22] LABS: TOTAL BILIRUBIN 0.5 mg/dL (<0.1-1.0); TOTAL PROTEIN 6.2 g/dL (6.4-8.2)
[2020-03-23 16:00] VITALS: BP 138/86
[2020-03-23 16:35] VITALS: BP 162/72
--- NOTE | 2020-03-23 17:13 | EKG ---
[place] [address] ELECTROCARDIOGRAM REPORT Name: KIKO SALDANA Grayson Room: [address]R.#: [id number] Admission: 03/23/20 Attend Phys: Lee Hameed, Discharge: Date of : 46 Date of Service: 03/23/20 1220 Report #: [id number] THIS REPORT FOR: //name// [facility] ED Test Date: 2020-03-23 Test Time: 12:20:39 Pat Name: KIKO SALDANA Department: Room: [facility] Gender: M Metaphysicist: LISETTE : 1950 Requested By: Wei Velez Order Number: [id number] MD: Nemesio Kelsey Measurements Intervals [place] Rate: 53 P: 0 SD: 187 QRS: 52 QRSD: 94 T: 113 QT: 461 QTc: 433 Interpretive Statements Sinus rhythm Biatrial enlargement LVH with secondary repolarization abnormality Baseline wander in lead(s) II,III,aVR,aVL,aVF,V1,V4,V5 Compared to ECG 03/08/2020 10:36:27 Atrial abnormality now present Atrial flutter no longer present Electronically Signed On 03-23-2020 17:13:31 CDT by Nemesio Kelsey [email or web address] <ELECTRONICALLY SIGNED> By: Minerva Kelsey MD, [facility] 03/23/20 1713 1220 1220 Minerva Kelsey MD, [facility] /EPI
[2020-03-23 18:58] LABS: BE -0.9 mmol/L (-2 to +3); PCO2 VENOUS 43.4 mmHg (41.0-51.0); PO2 VENOUS 27.4 mmHg (35.0-45.0)
[2020-03-23 20:00] VITALS: BP 179/101
[2020-03-24] VITALS: BP 128/53
[2020-03-24 04:00] VITALS: BP 118/67
[2020-03-24 04:20] LABS: HEMATOCRIT 26.9 % (42.0-52.0); HEMOGLOBIN 9.3 gm/dL (14.0-18.0); MCH 33.6 pg (26.0-34.0); MCHC 34.7 g/dL (28.0-37.0); MCV 96.9 fL (80.0-100.0); MPV 9.1 fl. (7.2-11.1); RBC 2.78 mil/uL (4.50-6.00); RDW-CV 14.1 % (10.5-14.5); WBC 4.4 thou/uL (4.0-11.0)
[2020-03-24 04:28] LABS: CREATININE 4.2 mg/dL (0.6-1.3); MAGNESIUM 1.9 mg/dL (1.8-2.4); POTASSIUM 4.3 mmol/L (3.5-5.1)
[2020-03-24 08:00] VITALS: BP 150/62
[2020-03-24 12:49] VITALS: BP 151/51
[2020-03-24 16:00] VITALS: BP 148/53
[2020-03-24 20:00] VITALS: BP 142/48
[2020-03-25] VITALS: BP 140/53
[2020-03-25 04:00] VITALS: BP 139/70
[2020-03-25 05:24] LABS: ALBUMIN 2.8 g/dL (3.4-5.0); CALCIUM 9.1 mg/dL (8.5-10.1); CREATININE 4.5 mg/dL (0.6-1.3); PHOSPHORUS* 5.4 mg/dL (2.5-4.9); POTASSIUM 4.7 mmol/L (3.5-5.1)
[2020-03-25 07:30] VITALS: BP 142/58
[2020-03-25 13:02] VITALS: BP 107/38
[2020-03-25 16:58] VITALS: BP 138/77
[2020-03-25 20:00] VITALS: BP 138/49
[2020-03-25 20:21] LABS: URINE BILIRUBIN NEGATIVE (Negative); URINE BLOOD NEGATIVE (Negative); URINE CLARITY CLEAR; URINE COLOR YELLOW; URINE GLUCOSE-RANDOM TRACE (Negative); URINE KETONES NEGATIVE (Negative); URINE LEUKOCYTES-REFLEX NEGATIVE (Negative); URINE NITRITE-REFLEX NEGATIVE (Negative); URINE PROTEIN 3+ (Negative); URINE UROBILINOGEN 0.2 E.U./dl (0.2-1.0)
[2020-03-25 20:29] LABS: HYALINE CASTS 0-3 Few /LPF (None Seen); SQUAMOUS 0-3 Few /LPF (0-3)
[2020-03-25 20:30] LABS: BACTERIA-REFLEX None Seen /HPF (None Seen); CRYSTALS None Seen /LPF (None Seen); MUCUS None Seen strn/LPF (None Seen); URINE RBC 0-2 Rare /HPF (0-2)
[2020-03-25 20:31] LABS: URINE WBC-REFLEX None Seen /HPF (0-5)
[2020-03-26 04:00] VITALS: BP 94/60
[2020-03-26 04:20] LABS: CALCIUM 8.9 mg/dL (8.5-10.1); CREATININE 4.6 mg/dL (0.6-1.3); MAGNESIUM 2.1 mg/dL (1.8-2.4); POTASSIUM 4.6 mmol/L (3.5-5.1)
[2020-03-26 08:00] VITALS: BP 171/57
[2020-03-26 13:04] VITALS: BP 166/61
[2020-03-26 17:31] VITALS: BP 167/87
[2020-03-26 20:00] VITALS: BP 150/102
[2020-03-27] VITALS: BP 130/67
[2020-03-27 04:00] VITALS: BP 115/48
[2020-03-27 04:56] LABS: ALBUMIN 2.8 g/dL (3.4-5.0); CALCIUM 8.9 mg/dL (8.5-10.1); CREATININE 4.8 mg/dL (0.6-1.3); POTASSIUM 4.6 mmol/L (3.5-5.1); TOTAL BILIRUBIN 0.6 mg/dL (<0.1-1.0); TOTAL PROTEIN 5.9 g/dL (6.4-8.2)
[2020-03-27 07:30] VITALS: BP 117/30
[2020-03-27 12:00] VITALS: BP 143/51
[2020-03-27 16:00] VITALS: BP 110/68
--- NOTE | 2020-03-27 17:49 | EKG ---
[place] [address] ELECTROCARDIOGRAM REPORT Name: SHANAKIKO Room: [address] ADM IN M.R.#: [id number] Admission: 03/23/20 Attend Phys: Lee Hameed, Discharge: Date of : 46 Date of Service: 03/24/202112 Report #: [id number] THIS REPORT FOR: //name// [facility] Test Date: 2020-03-24 Test Time: 21:13:25 Pat Name: KIKO SALDANA Department: Room: [address] Gender: M Cobbler Upper: THOWARD3 : 1950 Requested By: Meenakshi Salinas Order Number: [id number] Raquel MD: Leoncio Herbert Measurements Intervals [place] Rate: 63 P: 0 MD: 38 QRS: 61 QRSD: 147 T: 13 QT: 467 QTc: 479 Interpretive Statements Sinus rhythm LVH with secondary repolarization abnormality Borderline prolonged QT interval Artifact in lead(s) I,II,III,aVR,aVL,aVF,V2,V5,V6 and baseline wander in lead(s) III Compared to ECG 03/23/2020 12:20:39 Artifact now present Electronically Signed On 03-27-2020 17:48:56 CDT by Leoncio Herbert [email or web address] <ELECTRONICALLY SIGNED> By: Leoncio Herbert MD, FACC 03/27/20 1748 12 12 Leoncio Herbert MD, FACC /EPI
[2020-03-27 20:00] VITALS: BP 152/81
[2020-03-28 00:31] VITALS: BP 142/60
[2020-03-28 04:41] VITALS: BP 132/55
[2020-03-28 04:41] LABS: HEMATOCRIT 25.5 % (42.0-52.0); HEMOGLOBIN 8.9 gm/dL (14.0-18.0); MCH 33.6 pg (26.0-34.0); MCHC 34.9 g/dL (28.0-37.0); MCV 96.3 fL (80.0-100.0); MPV 9.3 fl. (7.2-11.1); RBC 2.65 mil/uL (4.50-6.00); RDW-CV 13.9 % (10.5-14.5); WBC 3.9 thou/uL (4.0-11.0)
[2020-03-28 04:53] LABS: CREATININE 4.6 mg/dL (0.6-1.3); MAGNESIUM 2.1 mg/dL (1.8-2.4); POTASSIUM 4.1 mmol/L (3.5-5.1)
[2020-03-28 04:57] LABS: ALBUMIN 2.9 g/dL (3.4-5.0); CREATININE 4.7 mg/dL (0.6-1.3); PHOSPHORUS* 5.2 mg/dL (2.5-4.9); POTASSIUM 4.4 mmol/L (3.5-5.1)
[2020-03-28 07:25] VITALS: BP 136/52
[2020-03-28 11:10] VITALS: BP 141/61
[2020-03-28 16:00] VITALS: BP 107/59
[2020-03-28 23:06] LABS: HEPATITIS B SURFACE AG Negative (Negative)
[2020-03-29 00:31] VITALS: BP 143/79
[2020-03-29 04:36] VITALS: BP 126/67
[2020-03-29 05:36] LABS: HEMATOCRIT 27.6 % (42.0-52.0); HEMOGLOBIN 9.6 gm/dL (14.0-18.0); MCH 33.8 pg (26.0-34.0); MCV 96.7 fL (80.0-100.0); MPV 9.5 fl. (7.2-11.1); RBC 2.85 mil/uL (4.50-6.00); RDW-CV 13.9 % (10.5-14.5)
[2020-03-29 05:54] LABS: ALBUMIN 3.3 g/dL (3.4-5.0); CALCIUM 9.4 mg/dL (8.5-10.1); CREATININE 4.1 mg/dL (0.6-1.3); PHOSPHORUS* 4.5 mg/dL (2.5-4.9); POTASSIUM 4.6 mmol/L (3.5-5.1)
[2020-03-29 08:04] VITALS: BP 120/66
[2020-03-29 12:00] VITALS: BP 159/74
[2020-03-29 16:00] VITALS: BP 142/93
[2020-03-29 20:00] VITALS: BP 153/72
[2020-03-30] VITALS (8 sets, daily range): BP systolic 138–169; BP diastolic 50–71
[2020-03-30 05:39] LABS: CALCIUM 9.3 mg/dL (8.5-10.1); CREATININE 3.4 mg/dL (0.6-1.3); MAGNESIUM 1.9 mg/dL (1.8-2.4); POTASSIUM 4.4 mmol/L (3.5-5.1)
[2020-03-30] MEDS ORDERED: TRAZODONE HCL100 MG PO (09:12)
[2020-03-30] MEDS ORDERED: NEPHRO-VITE TA0.8 MG PO (09:12)
[2020-03-30] MEDS ORDERED: HYDRALAZINE 2525 MG PO (09:12)
[2020-03-31] VITALS: BP 130/66
[2020-03-31 04:00] VITALS: BP 133/64
[2020-03-31 08:00] VITALS: BP 110/57
[2020-03-31 16:16] VITALS: BP 127/48
[2020-03-31 20:00] VITALS: BP 128/61
[2020-04-01] VITALS: BP 138/62
[2020-04-01 05:11] LABS: ALBUMIN 3.1 g/dL (3.4-5.0); CREATININE 4.3 mg/dL (0.6-1.3); POTASSIUM 4.4 mmol/L (3.5-5.1); TOTAL BILIRUBIN 0.6 mg/dL (<0.1-1.0); TOTAL PROTEIN 6.1 g/dL (6.4-8.2)
[2020-04-01 08:00] VITALS: BP 125/54
[2020-04-01] MEDS ORDERED: PHENERGAN 25 MG25 M1 PO (14:20)
[2020-04-01] MEDS ORDERED: HUMALOG100 UNIT/1 SUBQ (14:20)
[2020-04-01 15:57] VITALS: BP 122/55
[2020-04-01 16:46] VITALS: BP 142/50
== END 2020-04-01 17:00 | disposition home health service (06) | DRG 673 ==
LOC: M.ERS 12:12 → M.TBA-ER 14:20 → M.2W 14:20 → M.TBA-ER 14:20 → M.2W 16:20
PROVIDERS: Emergency Medicine Emergency Medical Services; Internal Medicine Nephrology; ADMIT Internal Medicine; ATTEND Internal Medicine
DX: N17.0 Acute kidney failure with tubular necrosis (principal); E43 Unspecified severe protein-calorie malnutrition; I13.0 Hypertensive heart and chronic kidney disease with heart failure and stage 1 through stage 4 chronic kidney disease, or unspecified chronic kidney disease; I50.32 Chronic diastolic (congestive) heart failure; N18.6 End stage renal disease; I27.20 Pulmonary hypertension, unspecified; G47.00 Insomnia, unspecified; G20 Parkinson's disease; F02.80 Dementia in other diseases classified elsewhere, unspecified severity, without behavioral disturbance, psychotic disturbance, mood disturbance, and anxiety; E11.22 Type 2 diabetes mellitus with diabetic chronic kidney disease; D63.1 Anemia in chronic kidney disease; R80.9 Proteinuria, unspecified; E03.9 Hypothyroidism, unspecified; E78.5 Hyperlipidemia, unspecified; M10.9 Gout, unspecified; T50.995A Adverse effect of other drugs, medicaments and biological substances, initial encounter; Z20.828 Contact with and (suspected) exposure to other viral communicable diseases; Y92.89 Other specified places as the place of occurrence of the external cause; Z79.899 Other long term (current) drug therapy; Z98.42 Cataract extraction status, left eye; Z98.41 Cataract extraction status, right eye; Z79.4 Long term (current) use of insulin; Z87.891 Personal history of nicotine dependence; Z68.21 Body mass index [BMI] 21.0-21.9, adult

== ENCOUNTER 2020-04-08 06:00 | Emergency (ER) | payer OTHER ==
[~2020-04-08] VITALS: Ht 182.9 cm; Wt 73.9 kg
[~2020-04-08 06:00] MED LIST changes: +HUMALOG100 UNIT/1 SUBQ; +NEPHRO-VITE TA0.8 MG PO; +PHENERGAN 25 MG25 M1 PO; +TRAZODONE HCL100 MG PO
[2020-04-08 07:18] LABS: ABSOLUTE EOSINOPHILS 0.2 thou/uL (0.0-0.7); ABSOLUTE LYMPHOCYTES 0.3 thou/uL (0.8-5.3); ABSOLUTE MONOCYTES 0.2 thou/uL (0.0-1.2); ABSOLUTE NEUTROPHILS 3.6 thou/uL (1.6-8.1); BASOPHILS 0.4 %; EOSINOPHILS 4.3 %; HEMATOCRIT 24.3 % (42.0-52.0); HEMOGLOBIN 8.6 gm/dL (14.0-18.0); LYMPHOCYTES 7.9 %; MCHC 35.3 g/dL (28.0-37.0); MCV 96.4 fL (80.0-100.0); MPV 7.3 fl. (7.2-11.1); NUCLEATED RBCS 0 /100WBC; PLATELET COUNT* 102 thou/uL (150-400); POLYS 82.4 %; RBC 2.52 mil/uL (4.50-6.00); RDW-CV 14.4 % (10.5-14.5); WBC 4.3 thou/uL (4.0-11.0)
[2020-04-08 07:30] LABS: CALCIUM 8.3 mg/dL (8.5-10.1); CREATININE 3.2 mg/dL (0.6-1.3); POTASSIUM 3.4 mmol/L (3.5-5.1)
[2020-04-08 07:40] LABS: ALBUMIN 2.7 g/dL (3.4-5.0); TOTAL BILIRUBIN 0.9 mg/dL (<0.1-1.0); TOTAL PROTEIN 5.5 g/dL (6.4-8.2)
[2020-04-08] MEDS ORDERED: ATIVAN1 M1 PO (08:01)
[2020-04-08 08:10] VITALS: BP 149/72
== END 2020-04-08 08:13 | disposition home or self-care (01) ==
LOC: M.ERS 06:00
PROVIDERS: Personal Emergency Response Attendant
DX: G20 Parkinson's disease (principal); Z20.828 Contact with and (suspected) exposure to other viral communicable diseases; E03.9 Hypothyroidism, unspecified; I13.0 Hypertensive heart and chronic kidney disease with heart failure and stage 1 through stage 4 chronic kidney disease, or unspecified chronic kidney disease; E11.22 Type 2 diabetes mellitus with diabetic chronic kidney disease; N18.4 Chronic kidney disease, stage 4 (severe); I50.32 Chronic diastolic (congestive) heart failure; E78.5 Hyperlipidemia, unspecified; Z87.442 Personal history of urinary calculi; Z86.2 Personal history of diseases of the blood and blood-forming organs and certain disorders involving the immune mechanism

== ENCOUNTER 2020-09-05 10:58 | Inpatient (IN) | payer OTHER ==
[~2020-09-05] VITALS: Ht 182.9 cm; Wt 73.2 kg
--- NOTE | ~2020-09-05 | CON ---
[address] [address] CONSULTATION Name: KIKO SALDANA Room: [address] IN M.R.#: [id number] Admission: 09/05/20 Attend Phys: Rajan Calix Discharge: Date of : 46 Report #: [id number] THIS REPORT FOR: cc: Efraín Posadas MD, Dean L. MD Vasudeva, Amita MD ~ DATE OF SERVICE: 09/06/2020 NEPHROLOGY CONSULTATION CONSULTING PHYSICIAN: Dr. Patel. REASON FOR NEPHROLOGY CONSULTATION: ESRD, for hemodialysis needs. REASON FOR ADMISSION: Weakness, nausea, vomiting and tingling towards the end of dialysis. HISTORY OF PRESENT ILLNESS: This is a 70-year-old male who is on hemodialysis every Friday, and Friday, completed his dialysis yesterday, goes to [facility] under the care of Dr. Portillo, was sent from dialysis to the ER over here after he started feeling nauseated, dizzy, lightheaded and complained of generalized weakness. The patient has Parkinson's disease and last week, he quit taking his L-dopa medication after taking it for 3 months and was attempting to see Neurology. His electrolytes are within normal range. He otherwise feels okay today. I am not sure exactly how much dialysis he received yesterday, but it seems like he did have a shortened treatment, but again not sure how much shortened it was. ALLERGIES: No known drug allergies. REVIEW OF SYSTEMS: As mentioned in history of present illness, weakness. Otherwise, 10-point review of systems done, negative. HOME MEDICATIONS: Include insulin, Ativan, trazodone, Nephro-Derian, hydralazine, insulin aspart, allopurinol, lovastatin, hydralazine, vitamin B complex. PAST MEDICAL AND SURGICAL HISTORY: Includes hypertension, diabetes, kidney stones, Parkinson's disease, left eye cataract surgery, right eye cataract surgery; gout, hypothyroidism, hyperlipidemia, left second toe amputation, ESRD, on hemodialysis every Friday, and Friday, pulmonary hypertension, chronic diastolic congestive heart failure, anemia of chronic kidney disease. FAMILY HISTORY: Noncontributory in [place] [address] CONSULTATION Name: KIKO SALDANA Room: [address]#: [id number] Admission: 09/05/20 Attend Phys: Rajan Calix Discharge: Date of : 46 Report #: [id number] SOCIAL HISTORY: Lives at home. Does not smoke or drink alcohol or use illicit drugs. PHYSICAL EXAMINATION: VITAL SIGNS: Blood pressure is 172/86, pulse rate was 80, temperature was 37.4, respiratory rate was 19, pulse ox is 97% on 2 liters of oxygen via nasal cannula. GENERAL: He is awake and alert and oriented this morning. HEAD AND EYES: Atraumatic and normocephalic. Conjunctivae normal. EARS, NOSE, AND THROAT: Normal ears and nose. Mucous membranes are moist. NECK: There is no JVD. CHEST: Bilaterally clear to auscultation anteriorly. No crackles or wheezing. CARDIOVASCULAR: S1, S2 normal. No murmurs. ABDOMEN: Soft, nondistended, nontender. EXTREMITIES: Upper extremities tremors, rolling tremors. Lower extremities, there is no edema. DIALYSIS ACCESS: Right IJ tunneled dialysis line is intact. PSYCHIATRIC: Mood and affect ruiz, he seems to be normal. NEUROLOGIC: Upper extremity tremors, but otherwise moves all his extremities. LABORATORY DATA: Hemoglobin is 10.0, sodium is 144, potassium 3.8 and other labs were reviewed. IMAGING: Chest x-ray was reviewed. ASSESSMENT: 1. End-stage renal disease, on hemodialysis every Friday, and Friday; did get partial dialysis on 09/05/2020. 2. Anemia of chronic kidney disease. 3. Parkinson's disease. The patient stopped his levodopa last week for some reason. 4. Diabetes type 2. Defer to Internal Medicine for management. 5. Hypertension. Blood pressure seems to be controlled. 6. Dyslipidemia. Defer to Internal Medicine. 7. Hypothyroidism. Defer to Internal Medicine. PLAN: 1. There is no acute need for dialysis today, plan for dialysis tomorrow. 2. Hemoglobin 10.0, [place] [address] CONSULTATION Name: SHANAIKKO Room: [address] IN ..#: [id number] Admission: 09/05/20 Attend Phys: Rajan Calix Discharge: Date of : 46 Report #: [id number] Thank you for this consultation, we will continue to follow for dialysis needs. By: 1010 [id number] christopher Pollack
--- NOTE | ~2020-09-05 | CON ---
[address] [address] CONSULTATION Name: KIKO SALDANA Room: [address] IN M.R.#: [id number] Admission: 09/05/20 Attend Phys: Rajan Calix Discharge: Date of : 46 Report #: [id number] THIS REPORT FOR: cc: Efraín Posadas MD, Dean L. MD Khosla,Jeferson Chavez MD ~ DATE OF SERVICE: 09/06/2020 HISTORY OF PRESENT ILLNESS: This is a 70-year-old male patient who was evaluated by me for Parkinson disease. I talked to Dr. Patel, the admitting physician. I had seen this patient in the office, but did not remember that much about him. Therefore, I went to the office and reviewed his records. He has seen neurologist at [place] [facility] and he saw me one time. Before he came to me, he has been tried on multiple essential tremor medications. He had a DaTscan that has shown finding consistent with Parkinson's disease. He was tried on Sinemet and none of the medications has produced any beneficial effect. We have discussed with him going to a movement disorder neurologist and considering deep brain stimulator. In fact, he wanted to do that and he was referred to Dr. Casper at [facility]. REVIEW OF SYSTEMS: Positive for renal failure. Nephrology is addressing that he has tremor. He has anxiety. He does not know if anxiety makes the tremor worse. He had hypoglycemia. Positive for cataract, kidney stone, diabetes, hypertension, hyperlipidemia, hypothyroidism, end-stage renal disease and shortness of breath. This was his relevant 14-point review of system. PAST MEDICAL HISTORY: Positive for essential tremor. FAMILY HISTORY: Negative for any early age stroke. SOCIAL HISTORY: He has smoked in the past. Does not use alcohol. PHYSICAL EXAMINATION: The patient is alert, responsive, able to follow simple commands. He thinks his memory, fund of knowledge and speech is at his baseline. Cranial nerve examination 2-12 does not appear to be showing any abnormality. He has a severe tremor. His neuromuscular examination is symmetrical. There is no meningeal sign. Blood pressure is 186/84, pulse is 74, temperature is 98.8. LABORATORY DATA: White count is 4.9 and GFR is only 21. He had imaging studies in the past and he has not changed much. IMPRESSION: This patient has a combination of Parkinson disease and essential tremor. No medication has been successful. He does have anxiety, [place] [address] CONSULTATION Name: KIKO SALDANA Room: [address] IN [facility]#: [id number] Admission: 09/05/20 Attend Phys: Rajan Calix Discharge: Date of : 46 Report #: [id number] make it worse. Most of the medication we can try will interact with his anticoagulation. He was referred to movement disorder specialist for consideration of a deep brain stimulator and that is what I will recommend to him. This is a longstanding tremor. Thank you very much for this referral. By: 1748 Micheline Lawrence MD /nt
[~2020-09-05 10:58] MED LIST changes: +ATIVAN1 M1 PO
[2020-09-05 11:00] VITALS: BP 122/69
[2020-09-05 11:20] LABS: ABSOLUTE BASOPHILS 0.1 thou/uL (0.0-0.2); ABSOLUTE EOSINOPHILS 0.4 thou/uL (0.0-0.7); ABSOLUTE LYMPHOCYTES 1.1 thou/uL (0.8-5.3); ABSOLUTE MONOCYTES 0.4 thou/uL (0.0-1.2); ABSOLUTE NEUTROPHILS 3.5 thou/uL (1.6-8.1); EOSINOPHILS 8.1 %; HEMATOCRIT 31.2 % (42.0-52.0); HEMOGLOBIN 10.7 gm/dL (14.0-18.0); LYMPHOCYTES 20.4 %; MCH 32.9 pg (26.0-34.0); MCHC 34.4 g/dL (28.0-37.0); MCV 95.4 fL (80.0-100.0); MONOCYTES 6.4 %; MPV 8.8 fl. (7.2-11.1); NUCLEATED RBCS 0 /100WBC; PLATELET COUNT* 133 thou/uL (150-400); POLYS 64.1 %; RBC 3.27 mil/uL (4.50-6.00); RDW-CV 13.7 % (10.5-14.5); WBC 5.5 thou/uL (4.0-11.0)
[2020-09-05 11:29] LABS: CALCIUM 9.1 mg/dL (8.5-10.1); POTASSIUM 3.2 mmol/L (3.5-5.1)
[2020-09-05 11:32] LABS: PROTIME 11.1 Seconds (9.20-11.50)
[2020-09-05 11:40] LABS: ALBUMIN 3.4 g/dL (3.4-5.0); TOTAL BILIRUBIN 1.4 mg/dL (<0.1-1.0); TOTAL PROTEIN 6.4 g/dL (6.4-8.2)
[2020-09-05 13:03] LABS: URINE BILIRUBIN NEGATIVE (Negative); URINE BLOOD TRACE (Negative); URINE CLARITY CLEAR; URINE COLOR YELLOW; URINE GLUCOSE-RANDOM TRACE (Negative); URINE KETONES NEGATIVE (Negative); URINE LEUKOCYTES-REFLEX NEGATIVE (Negative); URINE NITRITE-REFLEX NEGATIVE (Negative); URINE PROTEIN 3+ (Negative); URINE SPECIFIC GRAVITY 1.015 (1.005-1.030); URINE UROBILINOGEN 0.2 E.U./dl (0.2-1.0)
[2020-09-05 13:21] LABS: SQUAMOUS 0-3 Few /LPF (0-3)
[2020-09-05 13:22] LABS: BACTERIA-REFLEX 1-9 Few /HPF (None Seen); CASTS None Seen /LPF (None Seen); CRYSTALS None Seen /LPF (None Seen); MUCUS 0-3 Light strn/LPF (None Seen); URINE RBC 3-10 Few /HPF (0-2); URINE WBC-REFLEX 0-5 Rare /HPF (0-5)
--- NOTE | 2020-09-05 15:44 | EKG ---
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: CCD : 1950 Requested By: Anjum Mcdonnell Order Number: [id number] MD: Leoncio Herbert Measurements Intervals [place] Rate: 102 P: [place]: QRS: 61 QRSD: 94 T: 35 QT: 363 QTc: 473 Interpretive Statements Atrial flutter Nonspecific repol abnormality, diffuse leads Baseline wander in lead(s) II,III,aVL,aVF,V2,V3,V4,V5,V6 Compared to ECG 03/24/2020 21:13:25 Sinus rhythm no longer present Left ventricular hypertrophy no longer present Electronically Signed On 09-05-2020 15:44:07 CDT by Leoncio Herbert [email or web address] <ELECTRONICALLY SIGNED> By: Leoncio Herbert MD, [facility] 09/05/20 1544 1104 1104 Leoncio Herbert MD, [facility] /EPI
[2020-09-05] MEDS ORDERED: HYDRALAZINE 2525 MG PO (15:56)
[2020-09-05] MEDS ORDERED: DIALYVITE WITH1 EACH PO (15:57)
[2020-09-05 15:59] VITALS: BP 183/84
[2020-09-05 19:47] VITALS: BP 142/62
[2020-09-05 20:30] VITALS: BP 184/92
[2020-09-06 00:29] VITALS: BP 167/83
[2020-09-06 04:25] LABS: PLATELET COUNT* 129 thou/uL (150-400); RDW-CV 13.8 % (10.5-14.5); WBC 4.9 thou/uL (4.0-11.0)
[2020-09-06 04:29] LABS: HEMATOCRIT 29.2 % (42.0-52.0); MCH 32.4 pg (26.0-34.0); MCHC 34.4 g/dL (28.0-37.0); MCV 94.2 fL (80.0-100.0); MPV 8.9 fl. (7.2-11.1); NUCLEATED RBCS 0 /100WBC
[2020-09-06 04:42] LABS: CALCIUM 8.8 mg/dL (8.5-10.1); POTASSIUM 3.8 mmol/L (3.5-5.1)
[2020-09-06 05:01] VITALS: BP 156/40
[2020-09-06 05:31] LABS: ABSOLUTE EOSINOPHILS 0.6 thou/uL (0.0-0.7); ABSOLUTE LYMPHOCYTES 1.2 thou/uL (0.8-5.3); ABSOLUTE MONOCYTES 0.1 thou/uL (0.0-1.2); ABSOLUTE NEUTROPHILS 2.9 thou/uL (1.6-8.1); PLATELET ESTIMATE DECREASED
[2020-09-06 05:32] LABS: ANISOCYTOSIS 1+; POIKILOCYTOSIS 1+
[2020-09-06 09:30] VITALS: BP 172/86
[2020-09-06 11:32] VITALS: BP 196/95
--- NOTE | 2020-09-06 12:39 | 2DMMODE ---
[place] [address] 2 D/M-MODE ECHOCARDIOGRAM Name: KIKO SALDANA Grayson Room: [address] IN [facility]#: [id number] Admission: 09/05/20 Attend Phys: Yifan Patel Discharge: Date of : 46 Date of Service: 09/06/20 1239 Report #: [id number] THIS REPORT FOR: cc: Efraín Posadas MD, Dean L. MD Biggs, F. Douglas MD [facility] ~ APPROVED REPORT Study performed: 09/06/2020 10:52:23 EXAM: Comprehensive 2D, Doppler, and color-flow Echocardiogram Patient Location: In-Patient Room #: 220 Status: routine BSA: 2.02 HR: 79 bpm BP: 172/86 mmHg Rhythm: NSR Other Information Study Quality: Good Indications Congestive Heart Failure 2D Dimensions IVSd: 12.32 (7-11mm) LVOT Diam: 22.58 (18-24mm) LVDd: 49.49 mm PWd: 13.02 (7-11mm) Ascending Ao: 34.93 (22-36mm) LVDs: 27.10 (25-40mm) Aortic Root: 40.09 mm Volumes Left Atrial Volume (Systole) LA ESV Index: 36.30 mL/m2 Aortic Valve AoV Peak Jason.: 1.51 m/s AO Peak Gr.: 9.09 mmHg LVOT Max P.00 mmHg AO Mean Gr.: 5.15 mmHg LVOT Mean P.24 mmHg LVOT Max V: 1.12 m/s AO V2 VTI: 29.47 cm LVOT Mean V: 0.68 m/s MILTON (VTI): 3.25 cm2 LVOT V1 VTI: 23.88 [place] [address] 2 D/M-MODE ECHOCARDIOGRAM Name: KIKO SALDANA Room: [address] IN [facility].#: [id number] Admission: 09/05/20 Attend Phys: Yifan Patel Discharge: Date of : 46 Date of Service: 09/06/20 1239 Report #: [id number] Mitral Valve E/A Ratio: 0.80 MV Decel. Time: 114.78 ms MV E Max Jason.: 0.97 m/s MV PHT: 33.29 ms MVA (PHT): 6.61 cm2 TDI E/Lateral E': 7.46 E/Medial E': 10.78 Medial E' Jason.: 0.09 m/s Lateral E' Jason.: 0.13 m/s Pulmonary Valve PV Peak Jason.: 1.01 m/s PV Peak Gr.: 4.12 mmHg Tricuspid Valve RAP Estimate: 5.00 mmHg TR Peak Gr.: 29.32 mmHg RVSP: 34.00 mmHg PA Pressure: 34.00 mmHg Left Ventricle The left ventricle is normal size. There is normal LV segmental wall motion. Mild concentric left ventricular hypertrophy. Left ventricular systolic function is normal. The left ventricular ejection fraction is within the normal range. LVEF is 55-60%. Grade I - abnormal relaxation pattern. Right Ventricle The right ventricle is normal size. The right ventricular systolic function is normal. Atria Left atrium is mildly dilated. The right atrium size is normal. Aortic Valve Mild aortic valve sclerosis. No aortic regurgitation is present. There is no aortic valvular stenosis. Mitral Valve The mitral valve is normal in structure. Mild mitral regurgitation. No evidence of mitral valve stenosis. Tricuspid Valve The tricuspid valve is normal in structure. Mild tricuspid regurgitation. [place] [address] 2 D/M-MODE ECHOCARDIOGRAM Name: KIKO SALDANA Room: [address] IN [facility]#: [id number] Admission: 09/05/20 Attend Phys: Yifan Patel Discharge: Date of : 46 Date of Service: 09/06/20 1239 Report #: [id number] Pulmonic Valve The pulmonary valve is normal in structure. There is no pulmonic valvular regurgitation. Great Vessels The aortic root is normal in size. IVC is normal in size and collapses >50% with inspiration. Pericardium There is no pericardial effusion. <Conclusion> LVEF is 55-60%. Grade I - abnormal relaxation pattern. The left ventricle is normal size. Mild concentric left ventricular hypertrophy. There is normal LV segmental wall motion. Mild aortic valve sclerosis. No aortic regurgitation is present. There is no aortic valvular stenosis. Mild mitral regurgitation. Mild tricuspid regurgitation. Mild pulmonary hypertension. <ELECTRONICALLY SIGNED> By: Minerva Kelsey MD, FACC 09/06/20 1239 1239 1239 Minerva Kelsey MD, FACC /INF
[2020-09-06 16:00] VITALS: BP 186/84
[2020-09-06 20:00] VITALS: BP 139/95
[2020-09-07] VITALS: BP 145/76
[2020-09-07 04:00] VITALS: BP 128/80
[2020-09-07 04:20] LABS: ABSOLUTE EOSINOPHILS 0.6 thou/uL (0.0-0.7); ABSOLUTE LYMPHOCYTES 1.2 thou/uL (0.8-5.3); ABSOLUTE MONOCYTES 0.3 thou/uL (0.0-1.2); ABSOLUTE NEUTROPHILS 2.6 thou/uL (1.6-8.1); BASOPHILS 0.7 %; EOSINOPHILS 12.9 %; HEMATOCRIT 29.7 % (42.0-52.0); HEMOGLOBIN 10.1 gm/dL (14.0-18.0); LYMPHOCYTES 24.9 %; MCH 32.2 pg (26.0-34.0); MCHC 33.8 g/dL (28.0-37.0); MCV 95.2 fL (80.0-100.0); MPV 9.2 fl. (7.2-11.1); NUCLEATED RBCS 0 /100WBC; PLATELET COUNT* 132 thou/uL (150-400); POLYS 54.5 %; RBC 3.12 mil/uL (4.50-6.00); RDW-CV 13.8 % (10.5-14.5); WBC 4.8 thou/uL (4.0-11.0)
[2020-09-07 05:02] LABS: ALBUMIN 3.3 g/dL (3.4-5.0); CALCIUM 9.4 mg/dL (8.5-10.1); CREATININE 3.9 mg/dL (0.6-1.3); PHOSPHORUS* 4.4 mg/dL (2.5-4.9); POTASSIUM 3.7 mmol/L (3.5-5.1); TOTAL BILIRUBIN 0.8 mg/dL (<0.1-1.0); TOTAL PROTEIN 6.1 g/dL (6.4-8.2)
[2020-09-07 07:37] LABS: % SATURATION 35 % (20-39); IRON 93 ug/dL (50-175)
[2020-09-07 07:52] VITALS: BP 179/79
[2020-09-07] MEDS ORDERED: LISINOPRIL5 MG PO (11:37)
[2020-09-07] MEDS ORDERED: CARVEDILOL3.125 MG PO (11:37)
[2020-09-07] MEDS ORDERED: AMANTADINE50 MG/5 ML PO (13:23)
[2020-09-07 15:04] VITALS: BP 179/79
[2020-09-07 16:21] VITALS: BP 179/79
== END 2020-09-07 16:21 | disposition home or self-care (01) | DRG 291 ==
LOC: M.ERS 10:58 → M.2W 12:29 → M.TBA-ER 12:29 → M.2W 20:15
PROVIDERS: Family Medicine; ADMIT Internal Medicine; ATTEND Internal Medicine
PROC: 5A1D70Z Performance of Urinary Filtration, Intermittent, Less than 6 Hours Per Day (ICD-10-PCS; principal; 2020-09-07)
DX: I13.2 Hypertensive heart and chronic kidney disease with heart failure and with stage 5 chronic kidney disease, or end stage renal disease (principal); N18.6 End stage renal disease; I50.33 Acute on chronic diastolic (congestive) heart failure; Z20.822 Contact with and (suspected) exposure to COVID-19; E11.22 Type 2 diabetes mellitus with diabetic chronic kidney disease; M10.9 Gout, unspecified; E03.9 Hypothyroidism, unspecified; E78.5 Hyperlipidemia, unspecified; I27.20 Pulmonary hypertension, unspecified; D63.1 Anemia in chronic kidney disease; G20 Parkinson's disease; G25.0 Essential tremor; Z87.891 Personal history of nicotine dependence; Z87.442 Personal history of urinary calculi; Z98.42 Cataract extraction status, left eye; Z89.422 Acquired absence of other left toe(s); Z99.2 Dependence on renal dialysis; Z79.899 Other long term (current) drug therapy

== ENCOUNTER 2020-09-09 08:27 | Emergency (ER) | payer OTHER ==
[~2020-09-09] VITALS: Ht 182.9 cm; Wt 74.8 kg
[~2020-09-09 08:27] MED LIST changes: +AMANTADINE50 MG/5 ML PO; +CARVEDILOL3.125 MG PO; +DIALYVITE WITH1 EACH PO; +LISINOPRIL5 MG PO
[2020-09-09 09:09] LABS: ABSOLUTE EOSINOPHILS 0.3 thou/uL (0.0-0.7); ABSOLUTE LYMPHOCYTES 0.8 thou/uL (0.8-5.3); ABSOLUTE MONOCYTES 0.3 thou/uL (0.0-1.2); ABSOLUTE NEUTROPHILS 3.3 thou/uL (1.6-8.1); BASOPHILS 0.4 %; EOSINOPHILS 6.1 %; HEMATOCRIT 34.3 % (42.0-52.0); HEMOGLOBIN 11.7 gm/dL (14.0-18.0); LYMPHOCYTES 17.7 %; MCH 32.2 pg (26.0-34.0); MCHC 34.2 g/dL (28.0-37.0); MCV 94.2 fL (80.0-100.0); MONOCYTES 5.9 %; MPV 8.6 fl. (7.2-11.1); NUCLEATED RBCS 0 /100WBC; PLATELET COUNT* 161 thou/uL (150-400); POLYS 69.9 %; RBC 3.65 mil/uL (4.50-6.00); RDW-CV 13.8 % (10.5-14.5); WBC 4.8 thou/uL (4.0-11.0)
[2020-09-09 09:18] LABS: CALCIUM 8.7 mg/dL (8.5-10.1); POTASSIUM 3.5 mmol/L (3.5-5.1)
[2020-09-09 09:19] LABS: CREATININE 2.9 mg/dL (0.6-1.3)
[2020-09-09 09:20] LABS: PROTIME 11.1 Seconds (9.20-11.50)
[2020-09-09 09:28] LABS: ALBUMIN 3.8 g/dL (3.4-5.0); TOTAL PROTEIN 6.9 g/dL (6.4-8.2)
[2020-09-09 10:04] VITALS: BP 148/75
--- NOTE | 2020-09-10 09:45 | EKG ---
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: : 1950 Requested By: Anjum Mcdonnell Order Number: [id number] MD: Rad Zarco Measurements Intervals [place] Rate: 78 P: [place]: QRS: 78 QRSD: 99 T: 82 QT: 416 QTc: 474 Interpretive Statements Atrial fibrillation Baseline wander in lead(s) II,III,aVR,aVL,aVF,V4 Compared to ECG 09/05/2020 11:04:00 no change Electronically Signed On 09-10-2020 9:45:12 CDT by Rad Zarco [email or web address] <ELECTRONICALLY SIGNED> By: Rad Zarco MD, [facility] 09/10/20 0945 8 Rad Zarco MD, [facility] /EPI
== END 2020-09-09 10:07 | disposition home or self-care (01) ==
LOC: M.ERS 08:27
PROVIDERS: Family Medicine
DX: R53.1 Weakness (principal); R25.1 Tremor, unspecified; E03.9 Hypothyroidism, unspecified; E78.5 Hyperlipidemia, unspecified; I13.0 Hypertensive heart and chronic kidney disease with heart failure and stage 1 through stage 4 chronic kidney disease, or unspecified chronic kidney disease; E11.22 Type 2 diabetes mellitus with diabetic chronic kidney disease; N18.4 Chronic kidney disease, stage 4 (severe); I50.32 Chronic diastolic (congestive) heart failure; Z79.4 Long term (current) use of insulin; Z86.2 Personal history of diseases of the blood and blood-forming organs and certain disorders involving the immune mechanism; Z87.442 Personal history of urinary calculi

== ENCOUNTER 2020-10-16 17:44 | Inpatient (IN) | payer OTHER ==
[2020-10-16] VITALS (8 sets, daily range): BP systolic 179–222; BP diastolic 80–109
[~2020-10-16] VITALS: Ht 182.9 cm; Wt 67.9 kg
--- NOTE | ~2020-10-16 | EKG ---
[place] [address] ELECTROCARDIOGRAM REPORT Name: SHANAKIKO Grayson Room: [address] ADM IN .R.#: [id number] Admission: 10/16/20 Attend Phys: Sourav Henriquez Discharge: Date of : 46 Date of Service: 10/17/20 1536 Report #: [id number] THIS REPORT FOR: //name// [facility] Test Date: 2020-10-17 Test Time: 15:36:16 Pat Name: KIKO SALDANA Department: Room: [address] Gender: M Director Of Communications: FAISAL : 1950 Requested By: Sourav Henriquez Order Number: [id number] Reading MD: Measurements Intervals [place] Rate: 77 P: 0 [place]: 61 QRS: 54 QRSD: 96 T: 66 QT: 453 QTc: 513 Interpretive Statements Sinus rhythm Short [place] interval Prolonged QT interval Artifact in lead(s) I,II,aVR,aVF and baseline wander in lead(s) V3,V4 Compared to ECG 10/16/2020 19:29:45 Short [place] interval now present Prolonged QT interval now present Atrial fibrillation no longer present [email or web address] By: 35 35 Epiphany Epiphany, /APOLINAR
[2020-10-16 18:22] LABS: ABSOLUTE EOSINOPHILS 0.3 thou/uL (0.0-0.7); ABSOLUTE LYMPHOCYTES 0.9 thou/uL (0.8-5.3); ABSOLUTE MONOCYTES 0.3 thou/uL (0.0-1.2); ABSOLUTE NEUTROPHILS 3.3 thou/uL (1.6-8.1); BASOPHILS 0.9 %; EOSINOPHILS 6.4 %; HEMATOCRIT 33.8 % (42.0-52.0); HEMOGLOBIN 11.6 gm/dL (14.0-18.0); LYMPHOCYTES 17.4 %; MCH 33.4 pg (26.0-34.0); MCHC 34.3 g/dL (28.0-37.0); MCV 97.4 fL (80.0-100.0); MONOCYTES 6.8 %; MPV 8.1 fl. (7.2-11.1); NUCLEATED RBCS 0 /100WBC; PLATELET COUNT* 143 thou/uL (150-400); POLYS 68.5 %; RBC 3.47 mil/uL (4.50-6.00); RDW-CV 14.5 % (10.5-14.5); WBC 4.9 thou/uL (4.0-11.0)
[2020-10-16 18:33] LABS: CALCIUM 8.7 mg/dL (8.5-10.1); CREATININE 3.9 mg/dL (0.6-1.3); POTASSIUM 3.7 mmol/L (3.5-5.1)
[2020-10-16 18:34] LABS: APTT 25.3 Seconds (25.0-31.3); PROTIME 10.7 Seconds (9.20-11.50)
[2020-10-16 18:43] LABS: ALBUMIN 3.6 g/dL (3.4-5.0); TOTAL BILIRUBIN 0.6 mg/dL (<0.1-1.0); TOTAL PROTEIN 6.5 g/dL (6.4-8.2)
[2020-10-16] MEDS ORDERED: LANTUS SUBQ (21:01)
[2020-10-16] MEDS ORDERED: NEPHRO-VITE TA0.8 MG PO (21:02)
[2020-10-16] MEDS ORDERED: HUMALOG100 UNIT/1 SUBQ (21:02)
[2020-10-16] MEDS ORDERED: NORCO5 PO (21:03)
[2020-10-16] MEDS ORDERED: LORAZEPAM 1 MG T1 MG PO (21:03)
[2020-10-16] MEDS ORDERED: ACID CONTROLLER10 MG PO (21:04)
[2020-10-16] MEDS ORDERED: TRAZODONE HCL100 MG PO (21:04)
[2020-10-16] MEDS ORDERED: SINEMET 25-1001 EAC1 PO (21:05)
[2020-10-16] MEDS ORDERED: METFORMIN HCL500 M3 PO (21:06)
[2020-10-16] MEDS ORDERED: PREDNISONE 10 M10 MG PO (21:06)
[2020-10-17] VITALS (8 sets, daily range): BP systolic 112–204; BP diastolic 70–97
[2020-10-17 00:52] LABS: ABSOLUTE EOSINOPHILS 0.3 thou/uL (0.0-0.7); ABSOLUTE LYMPHOCYTES 0.9 thou/uL (0.8-5.3); ABSOLUTE MONOCYTES 0.3 thou/uL (0.0-1.2); ABSOLUTE NEUTROPHILS 4.3 thou/uL (1.6-8.1); BASOPHILS 0.5 %; HEMATOCRIT 31.3 % (42.0-52.0); HEMOGLOBIN 10.7 gm/dL (14.0-18.0); LYMPHOCYTES 15.5 %; MCH 33.3 pg (26.0-34.0); MCHC 34.3 g/dL (28.0-37.0); MONOCYTES 5.6 %; MPV 8.1 fl. (7.2-11.1); NUCLEATED RBCS 0 /100WBC; PLATELET COUNT* 124 thou/uL (150-400); POLYS 73.4 %; RBC 3.22 mil/uL (4.50-6.00); RDW-CV 14.3 % (10.5-14.5); WBC 5.8 thou/uL (4.0-11.0)
[2020-10-17 01:02] LABS: ALBUMIN 3.3 g/dL (3.4-5.0); CALCIUM 8.4 mg/dL (8.5-10.1); CREATININE 3.8 mg/dL (0.6-1.3); POTASSIUM 3.6 mmol/L (3.5-5.1); TOTAL BILIRUBIN 0.8 mg/dL (<0.1-1.0); TOTAL PROTEIN 5.9 g/dL (6.4-8.2)
--- NOTE | 2020-10-17 09:39 | EKG ---
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 : 1950 Requested By: Abimbola Silverman Order Number: [id number] MD: Rad Zarco Measurements Intervals [place] Rate: 85 P: [place]: QRS: 62 QRSD: 135 T: 84 QT: 403 QTc: 480 Interpretive Statements Atrial fibrillation Probable left ventricular hypertrophy Repol abnrm suggests ischemia, diffuse leads Artifact in lead(s) I,aVR,V1 Compared to ECG 09/09/2020 08:39:34 no change Electronically Signed On 10-17-2020 9:39:16 CDT by Rad Zarco [email or web address] <ELECTRONICALLY SIGNED> By: Rad Zarco MD, FAC 10/17/20 0939 182 182 Rad Zarco MD, [facility] /EPI
--- NOTE | 2020-10-17 09:41 | EKG ---
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 : 1950 Requested By: Abimbola Silverman Order Number: [id number] MD: Rad Zarco Measurements Intervals [place] Rate: 186 P: [place]: QRS: 55 QRSD: 107 T: 84 QT: 346 QTc: 609 Interpretive Statements Atrial fibrillation Nonspecific T abnrm, anterolateral leads Artifact in lead(s) I,aVR,aVL,V1,V2,V3,V4,V5,V6 Compared to ECG 10/16/2020 18:23:09 no change Electronically Signed On 10-17-2020 9:41:05 CDT by Rad Zarco [email or web address] <ELECTRONICALLY SIGNED> By: Rad Zacro MD, [facility] 10/17/20 0941 28 28 Rad Zarco MD, [facility] /EPI
[2020-10-18 03:29] LABS: HEMOGLOBIN 10.5 gm/dL (14.0-18.0); MCH 33.7 pg (26.0-34.0); MCHC 35.1 g/dL (28.0-37.0); MPV 8.8 fl. (7.2-11.1); RBC 3.12 mil/uL (4.50-6.00); RDW-CV 13.9 % (10.5-14.5); WBC 4.6 thou/uL (4.0-11.0)
[2020-10-18 03:40] LABS: CALCIUM 8.5 mg/dL (8.5-10.1); POTASSIUM 3.9 mmol/L (3.5-5.1)
[2020-10-18 04:08] VITALS: BP 144/69
[2020-10-18 07:47] VITALS: BP 185/89
--- NOTE | 2020-10-18 10:16 | EKG ---
[place] [address] ELECTROCARDIOGRAM REPORT Name: KIKO SALDANA Room: [address] ADM IN .R.#: [id number] Admission: 10/16/20 Attend Phys: Sourav Henriquez Discharge: Date of : 46 Date of Service: 10/17/20 1536 Report #: [id number] THIS REPORT FOR: //name// [facility] Test Date: 2020-10-17 Test Time: 15:36:16 Pat Name: KIKO SALDANA Department: Room: [address] Gender: M Airset Caster: FAISAL : 1950 Requested By: Sourav Henriquez Order Number: [id number] Reading MD: Rad Zarco Measurements Intervals [place] Rate: 77 P: 0 [place]: 61 QRS: 54 QRSD: 96 T: 66 QT: 453 QTc: 513 Interpretive Statements Sinus rhythm Prolonged QT interval Artifact in lead(s) I,II,aVR,aVF and baseline wander in lead(s) V3,V4 Compared to ECG 10/16/2020 19:29:45 Prolonged QT interval now present Electronically Signed On 10-18-2020 10:16:21 CDT by Rad Zarco [email or web address] <ELECTRONICALLY SIGNED> By: Rad Zarco MD, FACC 10/18/20 1016 1536 1536 Rad Zarco MD, [facility] /EPI
[2020-10-18 10:52] VITALS: BP 185/89
[2020-10-18 11:52] VITALS: BP 185/89
[2020-10-18 12:52] VITALS: BP 185/89
--- NOTE | 2020-10-19 10:21 | CON ---
[address] [address] CONSULTATION Name: KIKO SALDANA Room: [address] IN .R.#: [id number] Admission: 10/16/20 Attend Phys: Rajan Barnes Discharge: 10/18/20 Date of : 46 Report #: [id number] THIS REPORT FOR: cc: Efraín Posadas MD, Dean L. MD Arakelov, Alexandr V. MD ~ DOC #: [id number] Steven Cameron MD DATE OF CONSULTATION: 10/17/2020 REQUESTING PHYSICIAN: Dr. Henriquez. REASON FOR CONSULTATION: Assistance in providing dialysis. HISTORY OF PRESENT ILLNESS: The patient is a 70-year-old gentleman with medical history significant for end-stage renal disease, hypertension, cardiomyopathy, presents to the hospital with complaints of shortness of breath. He was diagnosed with hypertensive urgency with blood pressure of 196/87. He missed his dialysis on Friday, so his last dialysis was on . FAMILY HISTORY: Positive for hypertension. SOCIAL HISTORY: No tobacco or alcohol abuse. PAST MEDICAL HISTORY: As mentioned earlier. In addition to that, he has Parkinson disease, diabetes mellitus type 2, pulmonary hypertension, hyperlipidemia. MEDICATIONS: Reviewed. PHYSICAL EXAMINATION: VITAL SIGNS: On dialysis this morning, blood pressure is 185/79, heart rate 64, afebrile. HEENT: Pupils are round. NECK: Supple. LUNGS: Decreased air movements. CARDIOVASCULAR: Regular rate. ABDOMEN: Soft. EXTREMITIES: He has significant tremor due to parkinsonism. Dialysis via right internal jugular vein tunneled dialysis catheter. ASSESSMENT: 1. End-stage renal disease, dialysis Friday, and Friday schedule. 2. Hypertension, admitted with hypertensive urgency. 3. Diabetes mellitus type 2[place] [address] CONSULTATION Name: KIKO SALDANA Room: [address]#: [id number] Admission: 10/16/20 Attend Phys: Rajan Barnes Discharge: 10/18/20 Date of : 46 Report #: [id number] 4. Parkinsonism. PLAN: Dialysis today. He is on dialysis now. Next dialysis will be on . Rest of the system will be addressed by primary team. Steven Cameron MD MILTON/GAU <ELECTRONICALLY SIGNED> By: Steven Cameron MD 10/19/20 1021 1046 1148Alexandkarli Cameron MD /nt
== END 2020-10-18 12:50 | disposition home or self-care (01) | DRG 304 ==
LOC: M.ERS 17:44 → M.2W 20:20 → M.TBA-ER 20:20 → M.2W 22:00
PROVIDERS: Nurse Practitioner Family; ADMIT Internal Medicine; ATTEND Internal Medicine
PROC: 5A1D70Z Performance of Urinary Filtration, Intermittent, Less than 6 Hours Per Day (ICD-10-PCS; principal; 2020-10-17)
DX: I16.1 Hypertensive emergency (principal); N18.6 End stage renal disease; I50.32 Chronic diastolic (congestive) heart failure; I42.9 Cardiomyopathy, unspecified; R06.03 Acute respiratory distress; E11.22 Type 2 diabetes mellitus with diabetic chronic kidney disease; E78.5 Hyperlipidemia, unspecified; E03.9 Hypothyroidism, unspecified; I13.2 Hypertensive heart and chronic kidney disease with heart failure and with stage 5 chronic kidney disease, or end stage renal disease; G20 Parkinson's disease; M10.9 Gout, unspecified; Z20.822 Contact with and (suspected) exposure to COVID-19; Z99.2 Dependence on renal dialysis; Z98.42 Cataract extraction status, left eye; Z98.41 Cataract extraction status, right eye; Z79.4 Long term (current) use of insulin; Z79.899 Other long term (current) drug therapy

== ENCOUNTER 2020-10-30 09:42 | Inpatient (IN) | payer OTHER ==
[~2020-10-30] VITALS: Ht 182.9 cm; Wt 67.0 kg
[~2020-10-30 09:42] MED LIST changes: +ACID CONTROLLER10 MG PO; +LANTUS SUBQ; +LORAZEPAM 1 MG T1 MG PO; +METFORMIN HCL500 M3 PO; +NORCO5 PO; +SINEMET 25-1001 EAC1 PO
[2020-10-30 09:48] VITALS: BP 155/68
[2020-10-30 10:28] LABS: ABSOLUTE BASOPHILS 0.1 thou/uL (0.0-0.2); ABSOLUTE EOSINOPHILS 0.6 thou/uL (0.0-0.7); ABSOLUTE LYMPHOCYTES 1.7 thou/uL (0.8-5.3); ABSOLUTE MONOCYTES 0.5 thou/uL (0.0-1.2); ABSOLUTE NEUTROPHILS 7.7 thou/uL (1.6-8.1); BASOPHILS 0.7 %; EOSINOPHILS 5.4 %; HEMATOCRIT 35.3 % (42.0-52.0); HEMOGLOBIN 12.2 gm/dL (14.0-18.0); LYMPHOCYTES 15.9 %; MCH 33.2 pg (26.0-34.0); MCHC 34.6 g/dL (28.0-37.0); MCV 95.9 fL (80.0-100.0); MONOCYTES 5.2 %; MPV 9.2 fl. (7.2-11.1); NUCLEATED RBCS 0 /100WBC; PLATELET COUNT* 183 thou/uL (150-400); POLYS 72.8 %; RBC 3.68 mil/uL (4.50-6.00); RDW-CV 13.6 % (10.5-14.5); WBC 10.5 thou/uL (4.0-11.0)
[2020-10-30 10:40] LABS: URINE BILIRUBIN NEGATIVE (Negative); URINE BLOOD NEGATIVE (Negative); URINE CLARITY CLEAR; URINE COLOR YELLOW; URINE GLUCOSE-RANDOM 1+ (Negative); URINE KETONES NEGATIVE (Negative); URINE LEUKOCYTES-REFLEX NEGATIVE (Negative); URINE NITRITE-REFLEX NEGATIVE (Negative); URINE PROTEIN 2+ (Negative); URINE SPECIFIC GRAVITY 1.015 (1.005-1.030)
[2020-10-30 10:52] LABS: CASTS None Seen /LPF (None Seen); CRYSTALS None Seen /LPF (None Seen); SQUAMOUS 0-3 Few /LPF (0-3); URINE RBC 0-2 Rare /HPF (0-2); URINE WBC-REFLEX 6-15 Few /HPF (0-5)
[2020-10-30 10:58] LABS: ALBUMIN 3.3 g/dL (3.4-5.0); CALCIUM 8.8 mg/dL (8.5-10.1); CREATININE 3.7 mg/dL (0.6-1.3); POTASSIUM 4.1 mmol/L (3.5-5.1); TOTAL BILIRUBIN 0.7 mg/dL (<0.1-1.0); TOTAL PROTEIN 6.1 g/dL (6.4-8.2)
[2020-10-30 14:09] VITALS: BP 162/72
[2020-10-30 14:25] VITALS: BP 205/89
[2020-10-30 21:04] VITALS: BP 183/99
[2020-10-30 22:11] LABS: HEMOGLOBIN 11.6 gm/dL (14.0-18.0)
[2020-10-30 23:48] VITALS: BP 198/99
[2020-10-31 04:49] VITALS: BP 147/67
[2020-10-31 04:54] LABS: HEMATOCRIT 29.8 % (42.0-52.0); HEMOGLOBIN 10.3 gm/dL (14.0-18.0); MCHC 34.5 g/dL (28.0-37.0); MCV 95.8 fL (80.0-100.0); MPV 9.1 fl. (7.2-11.1); NUCLEATED RBCS 0 /100WBC; PLATELET COUNT* 119 thou/uL (150-400); RBC 3.11 mil/uL (4.50-6.00); RDW-CV 13.7 % (10.5-14.5); WBC 12.6 thou/uL (4.0-11.0)
[2020-10-31 05:07] LABS: CALCIUM 8.4 mg/dL (8.5-10.1); CREATININE 3.8 mg/dL (0.6-1.3); POTASSIUM 3.6 mmol/L (3.5-5.1)
[2020-10-31 05:55] LABS: ABSOLUTE LYMPHOCYTES 0.3 thou/uL (0.8-5.3); ABSOLUTE MONOCYTES 0.9 thou/uL (0.0-1.2); ABSOLUTE NEUTROPHILS 11.5 thou/uL (1.6-8.1); ANISOCYTOSIS 1+; PLATELET ESTIMATE DECREASED; POIKILOCYTOSIS 1+
[2020-10-31 07:40] VITALS: BP 135/63
[2020-10-31 12:00] VITALS: BP 143/60
--- NOTE | 2020-10-31 12:08 | EKG ---
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: : 1950 Requested By: Wei Velez Order Number: [id number] MD: Leoncio Herbert Measurements Intervals [place] Rate: 80 P: [place]: QRS: 45 QRSD: 233 T: 37 QT: 533 QTc: 615 Interpretive Statements Sinus rhythm First-degree AV block Artifact in lead(s) I,II,aVR,aVL,aVF,V1, V2, V3, V4, V5, V6 Compared to ECG 10/17/2020 15:36:16 Artifact is more pronounced Electronically Signed On 10-31-2020 12:08:08 CDT by Leoncio Herbert [email or web address] <ELECTRONICALLY SIGNED> By: Leoncio Herbert MD, [facility] 10/31/20 1208 0951 0951 Leoncio Herbert MD, [facility] /EPI
[2020-10-31 14:49] LABS: HEMATOCRIT 29.4 % (42.0-52.0); HEMOGLOBIN 10.1 gm/dL (14.0-18.0)
[2020-10-31 16:00] VITALS: BP 153/66
[2020-10-31 19:40] VITALS: BP 173/62
[2020-10-31 22:28] LABS: HEMATOCRIT 27.5 % (42.0-52.0); HEMOGLOBIN 9.6 gm/dL (14.0-18.0)
[2020-10-31 23:15] VITALS: BP 168/63
[2020-11-01 05:00] VITALS: BP 136/55
[2020-11-01 06:09] LABS: HEMATOCRIT 27.4 % (42.0-52.0); HEMOGLOBIN 9.7 gm/dL (14.0-18.0); MCH 33.6 pg (26.0-34.0); MCHC 35.3 g/dL (28.0-37.0); MCV 95.2 fL (80.0-100.0); MPV 7.9 fl. (7.2-11.1); RBC 2.88 mil/uL (4.50-6.00); RDW-CV 13.6 % (10.5-14.5); WBC 8.7 thou/uL (4.0-11.0)
[2020-11-01 06:17] LABS: CALCIUM 7.9 mg/dL (8.5-10.1); POTASSIUM 3.5 mmol/L (3.5-5.1)
[2020-11-01 06:27] LABS: CREATININE 2.5 mg/dL (0.6-1.3)
[2020-11-01 07:40] VITALS: BP 128/56
--- NOTE | 2020-11-01 11:58 | CON ---
[address] [address] CONSULTATION Name: KIKO SALDANA Room: [address] IN M.R.#: [id number] Admission: 10/30/20 Attend Phys: Corky Cardozo MD Discharge: Date of : 46 Report #: [id number] THIS REPORT FOR: cc: Efraín Posadas MD, Dean L. MD Arakelov, Alexandr V. MD ~ DOC #: [id number] Steven Cameron MD DATE OF CONSULTATION: 10/31/2020 REQUESTING PHYSICIAN: Corky Cardozo MD. REASON FOR CONSULTATION: Assistance in providing dialysis. HISTORY OF PRESENT ILLNESS: The patient is a 70-year-old gentleman with medical history significant for end-stage renal disease, on chronic hemodialysis on Friday, , Friday schedule, diabetes mellitus type 2, hypertension, Parkinson disease. Presents with complaints of diarrhea and abdominal pain that started several days ago. Admitted with diagnosis of colitis. I was consulted to provide dialysis. PAST MEDICAL HISTORY: As mentioned earlier. SOCIAL HISTORY: No tobacco or alcohol abuse. MEDICATIONS: Reviewed. PHYSICAL EXAMINATION: GENERAL: Awake, alert, oriented, no acute distress. VITAL SIGNS: Reviewed. NECK: Supple. LUNGS: Clear. CARDIOVASCULAR: Regular rate. ABDOMEN: Soft. EXTREMITIES: Lower extremities, no edema. He has a tunneled dialysis catheter in place in the right internal jugular vein. ASSESSMENT: 1. End-stage renal disease. 2. Diabetes mellitus type 2. 3. Hypertension. 4. Diabetes. PLAN: We will dialyze today and the rest problems will be [place] [address] CONSULTATION Name: KIKO SALDANA Room: [address] IN M.R.#: [id number] Admission: 10/30/20 Attend Phys: Corky Cardozo MD Discharge: Date of : 46 Report #: [id number] MD MILTON Vasquez/HOSEA/SHAHEED <ELECTRONICALLY SIGNED> By: Steven Cameron MD 11/01/20 1158 1002 1935Arubina Cameron MD /nt
[2020-11-01 14:08] LABS: HEMATOCRIT 26.1 % (42.0-52.0); HEMOGLOBIN 9.3 gm/dL (14.0-18.0)
[2020-11-01 22:05] LABS: HEMATOCRIT 27.5 % (42.0-52.0); HEMOGLOBIN 9.7 gm/dL (14.0-18.0)
[2020-11-01 23:08] VITALS: BP 102/69
[2020-11-02] VITALS: BP 169/69
[2020-11-02 04:00] VITALS: BP 199/74
[2020-11-02 06:11] LABS: HEMOGLOBIN 9.4 gm/dL (14.0-18.0); MCH 33.2 pg (26.0-34.0); MCHC 34.8 g/dL (28.0-37.0); MCV 95.4 fL (80.0-100.0); MPV 8.5 fl. (7.2-11.1); RBC 2.83 mil/uL (4.50-6.00); RDW-CV 13.4 % (10.5-14.5)
[2020-11-02 06:38] LABS: CALCIUM 8.3 mg/dL (8.5-10.1); CREATININE 3.4 mg/dL (0.6-1.3); POTASSIUM 3.7 mmol/L (3.5-5.1)
[2020-11-02 08:00] VITALS: BP 150/86
[2020-11-02] MEDS ORDERED: VANCOMYCIN HCL125 MG PO (10:17)
[2020-11-02 14:22] LABS: HEMATOCRIT 29.9 % (42.0-52.0); HEMOGLOBIN 10.5 gm/dL (14.0-18.0)
[2020-11-02 18:03] VITALS: BP 143/70
[2020-11-02 20:00] VITALS: BP 117/72
[2020-11-02 22:27] LABS: HEMATOCRIT 27.2 % (42.0-52.0); HEMOGLOBIN 9.6 gm/dL (14.0-18.0)
[2020-11-03] VITALS: BP 132/69
[2020-11-03 04:00] VITALS: BP 176/71
[2020-11-03 04:47] VITALS: BP 152/71
[2020-11-03 07:02] LABS: HEMATOCRIT 27.4 % (42.0-52.0); HEMOGLOBIN 9.6 gm/dL (14.0-18.0)
[2020-11-03 09:00] VITALS: BP 170/71
[2020-11-03 14:26] LABS: HEMATOCRIT 31.5 % (42.0-52.0); HEMOGLOBIN 10.9 gm/dL (14.0-18.0)
[2020-11-03 20:00] VITALS: BP 178/84
[2020-11-03 22:00] VITALS: BP 105/62
[2020-11-03 22:29] LABS: HEMATOCRIT 28.2 % (42.0-52.0); HEMOGLOBIN 9.9 gm/dL (14.0-18.0)
[2020-11-04] VITALS: BP 151/76
[2020-11-04 04:00] VITALS: BP 179/66
[2020-11-04 05:33] LABS: CALCIUM 8.8 mg/dL (8.5-10.1); CREATININE 3.6 mg/dL (0.6-1.3)
[2020-11-04 05:45] LABS: HEMATOCRIT 28.1 % (42.0-52.0); HEMOGLOBIN 9.9 gm/dL (14.0-18.0)
[2020-11-04 05:47] LABS: ABSOLUTE EOSINOPHILS 0.2 thou/uL (0.0-0.7); ABSOLUTE MONOCYTES 0.4 thou/uL (0.0-1.2); ABSOLUTE NEUTROPHILS 4.5 thou/uL (1.6-8.1); BASOPHILS 0.4 %; EOSINOPHILS 3.8 %; HEMATOCRIT 27.9 % (42.0-52.0); HEMOGLOBIN 9.8 gm/dL (14.0-18.0); LYMPHOCYTES 15.8 %; MCH 32.9 pg (26.0-34.0); MCHC 35.1 g/dL (28.0-37.0); MCV 93.8 fL (80.0-100.0); MONOCYTES 6.3 %; MPV 8.1 fl. (7.2-11.1); NUCLEATED RBCS 0 /100WBC; PLATELET COUNT* 149 thou/uL (150-400); POLYS 73.7 %; RBC 2.98 mil/uL (4.50-6.00); RDW-CV 13.2 % (10.5-14.5)
[2020-11-04 08:00] VITALS: BP 121/46
--- NOTE | 2020-11-04 11:21 | PROC ---
[address] [address] PROCEDURE REPORT Name: KIKO SALDANA Room: [address] IN M.R.#: [id number] Admission: 10/30/20 Attend Phys: Corky Cardozo MD Discharge: Date of : 46 Report #: [id number] THIS REPORT FOR: cc: Efraín Posadas MD, Dean L. MD Vardakis, Gregory DO ~ DOC #: [id number] Renato Waldrop DO DATE OF PROCEDURE: 11/01/2020 PROCEDURE PERFORMED: Fecal disimpaction under MAC sedation. SEDATION USED: Monitored anesthesia care with 70 mcg of propofol. SPECIMEN RETRIEVED: None. INDICATIONS: The patient is a 70-year-old white male with disabling Parkinson's disease who has been having problem with diarrhea, but has also been found to have rectosigmoid thickening on CT scan and what appears to be fecal impaction. I saw the patient in consultation last night and confirmed that the patient has a fecal impaction and for this reason, he is now here for disimpaction under anesthesia. He was also found to have C. diff infection overnight with stool studies. He presents today for fecal disimpaction. Physical examination revealed ill-appearing 70-year-old gentleman who has got terrible Parkinson's disease. Cardiopulmonary examination is benign. Abdomen soft, not tender. No rebound or guarding noted. DESCRIPTION OF PROCEDURE: Informed consent was obtained from the patient. This was also discussed with the patient last night and he was agreeable to same. Once the patient was adequately sedated anal inspection was unremarkable, digital rectal examination revealed semi-hard stool within the rectal vault. Using lubricated gloves, the fecal disimpaction was completely cleared. The patient was having liquid stool at the end of procedure. I then placed some extrinsic compression on the lower portion of the sigmoid colon to see if we could advance any further stool, but no further stool was noted. The patient was cleaned up and sent to recovery room in stable condition. IMPRESSION: 1. Successful fecal disimpaction under anesthesia. 1. Clostridium difficile infection. RECOMMENDATIONS: 1. Since the patient has now been diagnosed with C. diff infection, we will hold off on any endoscopic studies of his lower GI tract. He will be treated for his C. diff infection and if he is not responding, [place] [address] PROCEDURE REPORT Name: KIKO SALDANA Room: [address]#: [id number] Admission: 10/30/20 Attend Phys: Corky Cardozo MD Discharge: Date of : 46 Report #: [id number] undergo bowel preparation to confirm no other abnormalities noted. I did review the CT scan and there appeared to be thickening of the rectosigmoid colon. This could be related to ischemic colitis or C. diff colitis. In any event, nothing is going to change at this point by doing an endoscopy and for this reason, we will hold off on the same. 2. We will continue to follow the patient while in the hospital. Renato Waldrop DO GV/JHONATNA <ELECTRONICALLY SIGNED> By: Renato Waldrop DO 11/04/20 1121 1045 1236Renato Waldrop DO /nt
[2020-11-04 15:29] LABS: HEMATOCRIT 27.6 % (42.0-52.0); HEMOGLOBIN 9.7 gm/dL (14.0-18.0)
[2020-11-04 16:00] VITALS: BP 160/73
[2020-11-04 20:00] VITALS: BP 181/88
[2020-11-04 22:29] LABS: HEMATOCRIT 27.8 % (42.0-52.0); HEMOGLOBIN 9.8 gm/dL (14.0-18.0)
[2020-11-05 00:18] VITALS: BP 145/74
[2020-11-05 05:11] VITALS: BP 144/70
[2020-11-05 07:50] LABS: HEMATOCRIT 27.8 % (42.0-52.0); HEMOGLOBIN 9.8 gm/dL (14.0-18.0)
[2020-11-05 08:00] VITALS: BP 202/96
[2020-11-05 13:57] LABS: HEMATOCRIT 29.5 % (42.0-52.0); HEMOGLOBIN 10.3 gm/dL (14.0-18.0)
[2020-11-05 16:00] VITALS: BP 156/82
[2020-11-05 22:26] LABS: HEMATOCRIT 28.6 % (42.0-52.0); HEMOGLOBIN 10.2 gm/dL (14.0-18.0)
[2020-11-05 23:55] VITALS: BP 151/68
[2020-11-06 11:49] VITALS: BP 156/77
[2020-11-06 16:26] VITALS: BP 152/66
[2020-11-06 20:00] VITALS: BP 148/57
[2020-11-06 23:19] VITALS: BP 161/78
[2020-11-07 08:00] VITALS: BP 176/89
[2020-11-07 09:25] VITALS: BP 176/89
== END 2020-11-07 16:01 | DRG 344 ==
LOC: M.ERS 09:42 → M.2W 12:01 → M.TBA-ER 12:01 → M.2W 14:14
PROVIDERS: Emergency Medicine Emergency Medical Services; Internal Medicine; Internal Medicine Nephrology; ADMIT Internal Medicine; ATTEND Internal Medicine
PROC: 0D9P7ZZ Drainage of Rectum, Via Natural or Artificial Opening (ICD-10-PCS; principal; 2020-11-01)
PROC: 5A1D70Z Performance of Urinary Filtration, Intermittent, Less than 6 Hours Per Day (ICD-10-PCS; 2020-11-04)
PROC: 5A1D70Z Performance of Urinary Filtration, Intermittent, Less than 6 Hours Per Day (ICD-10-PCS; 2020-11-07)
DX: A04.72 Enterocolitis due to Clostridium difficile, not specified as recurrent (principal); N18.6 End stage renal disease; I13.2 Hypertensive heart and chronic kidney disease with heart failure and with stage 5 chronic kidney disease, or end stage renal disease; I50.32 Chronic diastolic (congestive) heart failure; E44.0 Moderate protein-calorie malnutrition; E11.22 Type 2 diabetes mellitus with diabetic chronic kidney disease; M10.9 Gout, unspecified; K56.41 Fecal impaction; E03.9 Hypothyroidism, unspecified; E78.5 Hyperlipidemia, unspecified; D64.9 Anemia, unspecified; G20 Parkinson's disease; Z20.822 Contact with and (suspected) exposure to COVID-19; Z98.42 Cataract extraction status, left eye; Z98.41 Cataract extraction status, right eye; Z89.422 Acquired absence of other left toe(s); Z79.4 Long term (current) use of insulin; Z79.899 Other long term (current) drug therapy; Z87.891 Personal history of nicotine dependence; Z68.20 Body mass index [BMI] 20.0-20.9, adult

== ENCOUNTER 2020-11-07 13:53 | Inpatient (IN) | payer OTHER ==
[~2020-11-07] VITALS: Ht 182.9 cm; Wt 67.1 kg
[~2020-11-07 13:53] MED LIST changes: +VANCOMYCIN HCL125 MG PO
[2020-11-07 20:00] VITALS: BP 151/74
[2020-11-08 05:05] LABS: HEMATOCRIT 27.7 % (42.0-52.0); HEMOGLOBIN 9.6 gm/dL (14.0-18.0); MCH 32.4 pg (26.0-34.0); MCHC 34.6 g/dL (28.0-37.0); MCV 93.4 fL (80.0-100.0); MPV 7.3 fl. (7.2-11.1); RBC 2.96 mil/uL (4.50-6.00); RDW-CV 13.1 % (10.5-14.5); WBC 6.7 thou/uL (4.0-11.0)
[2020-11-08 05:37] LABS: CALCIUM 8.7 mg/dL (8.5-10.1); CREATININE 2.9 mg/dL (0.6-1.3); POTASSIUM 4.1 mmol/L (3.5-5.1)
[2020-11-08 07:20] VITALS: BP 156/63
[2020-11-08 19:00] VITALS: BP 154/73
[2020-11-09 07:43] VITALS: BP 128/69
[2020-11-09 20:27] VITALS: BP 152/83
[2020-11-10 08:00] VITALS: BP 155/89
[2020-11-10 19:54] VITALS: BP 194/87
[2020-11-11 02:06] LABS: HEPATITIS B SURFACE AG Negative (Negative)
[2020-11-11 07:50] VITALS: BP 152/82
[2020-11-11 20:00] VITALS: BP 174/89
[2020-11-12 07:30] VITALS: BP 162/89
[2020-11-12 20:00] VITALS: BP 127/64
[2020-11-13 08:00] VITALS: BP 171/78
[2020-11-13 19:00] VITALS: BP 131/57
[2020-11-14 08:00] VITALS: BP 158/80
[2020-11-14 19:00] VITALS: BP 135/66
[2020-11-14 22:18] VITALS: BP 146/77
[2020-11-15 04:44] LABS: HEMATOCRIT 25.5 % (42.0-52.0); HEMOGLOBIN 9.2 gm/dL (14.0-18.0); MCH 33.2 pg (26.0-34.0); MCV 92.4 fL (80.0-100.0); MPV 7.1 fl. (7.2-11.1); RBC 2.76 mil/uL (4.50-6.00); RDW-CV 13.1 % (10.5-14.5); WBC 9.5 thou/uL (4.0-11.0)
[2020-11-15 04:50] LABS: CALCIUM 8.5 mg/dL (8.5-10.1); CREATININE 2.4 mg/dL (0.6-1.3); POTASSIUM 3.6 mmol/L (3.5-5.1)
[2020-11-15 08:00] VITALS: BP 136/67
[2020-11-15 19:55] VITALS: BP 134/69
[2020-11-16 08:00] VITALS: BP 150/78
[2020-11-16 15:38] VITALS: BP 150/78
[2020-11-16 20:20] VITALS: BP 185/87
[2020-11-16 20:46] VITALS: BP 168/80
[2020-11-17 08:00] VITALS: BP 156/84
[2020-11-17 20:05] VITALS: BP 176/86
[2020-11-18 08:00] VITALS: BP 152/85
[2020-11-18 19:00] VITALS: BP 117/50
[2020-11-18 23:07] VITALS: BP 184/92; BP 185/94
[2020-11-19 08:00] VITALS: BP 120/81
[2020-11-19 21:12] VITALS: BP 169/77
[2020-11-20 08:00] VITALS: BP 184/96
[2020-11-20 11:40] VITALS: BP 150/78
[2020-11-20] MEDS ORDERED: VANCOMYCIN HCL125 MG PO (13:30)
[2020-11-20 14:30] VITALS: BP 156/74
== END 2020-11-20 14:56 | disposition home health service (06) | DRG 947 ==
LOC: M.REH 13:53
PROVIDERS: Internal Medicine Nephrology; ADMIT Physical Medicine & Rehabilitation; ATTEND Physical Medicine & Rehabilitation
PROC: 5A1D70Z Performance of Urinary Filtration, Intermittent, Less than 6 Hours Per Day (ICD-10-PCS; principal; 2020-11-09)
PROC: 5A1D70Z Performance of Urinary Filtration, Intermittent, Less than 6 Hours Per Day (ICD-10-PCS; 2020-11-14)
PROC: 5A1D70Z Performance of Urinary Filtration, Intermittent, Less than 6 Hours Per Day (ICD-10-PCS; 2020-11-18)
DX: R53.81 Other malaise (principal); N18.6 End stage renal disease; E43 Unspecified severe protein-calorie malnutrition; I13.2 Hypertensive heart and chronic kidney disease with heart failure and with stage 5 chronic kidney disease, or end stage renal disease; A04.72 Enterocolitis due to Clostridium difficile, not specified as recurrent; E11.22 Type 2 diabetes mellitus with diabetic chronic kidney disease; G20 Parkinson's disease; E03.9 Hypothyroidism, unspecified; M10.9 Gout, unspecified; E78.5 Hyperlipidemia, unspecified; I27.20 Pulmonary hypertension, unspecified; I50.9 Heart failure, unspecified; Z99.2 Dependence on renal dialysis; K59.00 Constipation, unspecified; Z68.20 Body mass index [BMI] 20.0-20.9, adult; R62.7 Adult failure to thrive; R55 Syncope and collapse

== ENCOUNTER 2020-11-24 10:35 | Emergency (ER) | payer OTHER ==
[~2020-11-24] VITALS: Ht 182.9 cm; Wt 68.0 kg
[2020-11-24 11:03] LABS: ABSOLUTE EOSINOPHILS 0.1 thou/uL (0.0-0.7); ABSOLUTE MONOCYTES 0.3 thou/uL (0.0-1.2); ABSOLUTE NEUTROPHILS 4.5 thou/uL (1.6-8.1); BASOPHILS 0.7 %; EOSINOPHILS 2.3 %; HEMOGLOBIN 9.3 gm/dL (14.0-18.0); LYMPHOCYTES 17.3 %; MCHC 35.8 g/dL (28.0-37.0); MCV 92.2 fL (80.0-100.0); MONOCYTES 5.2 %; MPV 6.9 fl. (7.2-11.1); NUCLEATED RBCS 0 /100WBC; PLATELET COUNT* 202 thou/uL (150-400); POLYS 74.5 %; RBC 2.82 mil/uL (4.50-6.00); RDW-CV 13.3 % (10.5-14.5)
[2020-11-24 11:13] LABS: CALCIUM 8.5 mg/dL (8.5-10.1); POTASSIUM 3.7 mmol/L (3.5-5.1)
[2020-11-24 11:24] LABS: ALBUMIN 2.8 g/dL (3.4-5.0)
[2020-11-24] MEDS ORDERED: XANAX 0.25 MG0.25 MG PO (12:24)
[2020-11-24 12:45] VITALS: BP 152/72
--- NOTE | 2020-11-24 14:31 | EKG ---
[place] [address] ELECTROCARDIOGRAM REPORT Name: KIKO SALDANA Room: [facility]#: [id number] Admission: 11/24/20 Attend Phys: Discharge: 11/24/20 Date of : 46 Date of Service: 11/24/20 1049 Report #: [id number] THIS REPORT FOR: //name// [facility] ED Test Date: 2020-11-24 Test Time: 10:49:05 Pat Name: KIKO SALDANA Department: Room: Gender: Supervisor Paper Testing: DERECK : 1950 Requested By: Rupert Juarez Order Number: [id number] MD: Kush Seals Measurements Intervals [place] Rate: 78 P: 60 [place]: 232 QRS: 71 QRSD: 90 T: 72 QT: 407 QTc: 464 Interpretive Statements Sinus rhythm Prolonged [place] interval Compared to ECG 10/30/2020 09:51:09 First degree AV block now present Electronically Signed On 11-24-2020 14:30:48 CDT by Kush Seals [email or web address] <ELECTRONICALLY SIGNED> By: Kush Seals MD, [facility] 11/24/20 1430 1049 1049 Kush Seals MD, [facility] /EPI
== END 2020-11-24 12:48 | disposition home or self-care (01) ==
LOC: M.ERS 10:35
PROVIDERS: Emergency Medicine
DX: F41.9 Anxiety disorder, unspecified (principal); R06.02 Shortness of breath; I13.2 Hypertensive heart and chronic kidney disease with heart failure and with stage 5 chronic kidney disease, or end stage renal disease; N18.6 End stage renal disease; I50.9 Heart failure, unspecified

== ENCOUNTER 2020-12-03 12:46 | Emergency (ER) | payer OTHER ==
[~2020-12-03] VITALS: Ht 182.9 cm; Wt 72.6 kg
[~2020-12-03 12:46] MED LIST changes: +XANAX 0.25 MG0.25 MG PO
[2020-12-03 13:17] LABS: ABSOLUTE EOSINOPHILS 0.2 thou/uL (0.0-0.7); ABSOLUTE LYMPHOCYTES 0.8 thou/uL (0.8-5.3); ABSOLUTE MONOCYTES 0.3 thou/uL (0.0-1.2); ABSOLUTE NEUTROPHILS 4.2 thou/uL (1.6-8.1); BASOPHILS 0.6 %; EOSINOPHILS 3.1 %; HEMATOCRIT 23.5 % (42.0-52.0); HEMOGLOBIN 8.2 gm/dL (14.0-18.0); LYMPHOCYTES 13.9 %; MCH 33.3 pg (26.0-34.0); MONOCYTES 5.4 %; MPV 6.9 fl. (7.2-11.1); NUCLEATED RBCS 0 /100WBC; PLATELET COUNT* 170 thou/uL (150-400); RBC 2.47 mil/uL (4.50-6.00); RDW-CV 14.8 % (10.5-14.5); WBC 5.5 thou/uL (4.0-11.0)
[2020-12-03 13:23] LABS: CALCIUM 8.3 mg/dL (8.5-10.1); CREATININE 4.1 mg/dL (0.6-1.3); POTASSIUM 4.1 mmol/L (3.5-5.1)
[2020-12-03 13:28] LABS: ALBUMIN 2.7 g/dL (3.4-5.0); TOTAL BILIRUBIN 0.6 mg/dL (<0.1-1.0); TOTAL PROTEIN 5.6 g/dL (6.4-8.2)
[2020-12-03 14:27] VITALS: BP 121/55
--- NOTE | 2020-12-05 13:30 | EKG ---
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 : 1950 Requested By: Wei Velez Order Number: [id number] MD: Rad Zarco Measurements Intervals [place] Rate: 77 P: [place]: QRS: 85 QRSD: 112 T: -82 QT: 375 QTc: 425 Interpretive Statements sinus rhythm Incomplete right bundle branch block Repol abnrm suggests ischemia, diffuse leads Artifact in lead(s) I,II,aVR,aVL,aVF,V1 Compared to ECG 11/24/2020 10:49:05 Incomplete right bundle-branch block now present ST (T wave) deviation now present Electronically Signed On 12-05-2020 13:30:13 CDT by Rad Zarco [email or web address] <ELECTRONICALLY SIGNED> By: Rad Zarco MD, [facility] 12/05/20 1330 1258 1258 Rad Zarco MD, [facility] /EPI
== END 2020-12-03 14:28 | disposition home or self-care (01) ==
LOC: M.ERS 12:46
PROVIDERS: Emergency Medicine Emergency Medical Services
DX: F41.9 Anxiety disorder, unspecified (principal); N18.6 End stage renal disease; I12.0 Hypertensive chronic kidney disease with stage 5 chronic kidney disease or end stage renal disease; I50.9 Heart failure, unspecified

== ENCOUNTER → 2021-01-03 | Outpatient (CLI) | payer OTHER ==
--- NOTE | 2021-01-03 16:28 | 2DMMODE ---
[place] [address] 2 D/M-MODE ECHOCARDIOGRAM Name: KIKO SALDANA Room: [facility]#: [id number] Admission: 01/03/21 Attend Phys: Efraín Posadas, Discharge: Date of : 46 Date of Service: 01/03/21 1628 Report #: [id number] THIS REPORT FOR: cc: Efraín Posadas MD, Dean L. MD Blick, David R. MD [facility] ~ APPROVED REPORT Study performed: 01/03/2021 13:45:56 EXAM: Comprehensive 2D, Doppler, and color-flow Echocardiogram Patient Location: Out-Patient BSA: 1.90 HR: 80 bpm BP: 120/78 mmHg Other Information Study Quality: Good Indications Congestive Heart Failure 2D Dimensions IVSd: 12.98 (7-11mm) LVOT Diam: 20.28 (18-24mm) LVDd: 44.47 mm PWd: 11.47 (7-11mm) Ascending Ao: 36.53 (22-36mm) LVDs: 34.07 (25-40mm) Aortic Root: 33.55 mm Volumes Left Atrial Volume (Systole) LA ESV Index: 17.40 mL/m2 Aortic Valve AoV Peak Jason.: 1.64 m/s AO Peak Gr.: 10.77 mmHg LVOT Max P.47 mmHg AO Mean Gr.: 5.24 mmHg LVOT Mean P.50 mmHg LVOT Max V: 0.93 m/s AO V2 VTI: 26.60 cm LVOT Mean V: 0.55 m/s MILTON (VTI): 2.18 cm2 LVOT V1 VTI: 17.98 cm Mitral Valve E/A Ratio: 0.58 [place] [address] 2 D/M-MODE ECHOCARDIOGRAM Name: KIKO SALDANA Room: [facility]#: [id number] Admission: 01/03/21 Attend Phys: Efraín Posadas, Discharge: Date of : 46 Date of Service: 01/03/21 1628 Report #: [id number] MV Decel. Time: 182.33 ms MV E Max Jason.: 0.49 m/s MV PHT: 52.88 ms MVA (PHT): 4.16 cm2 TDI E/Lateral E': 4.90 E/Medial E': 6.13 Medial E' Jason.: 0.08 m/s Lateral E' Jason.: 0.10 m/s Pulmonary Valve PV Peak Jason.: 1.09 m/s PV Peak Gr.: 4.77 mmHg Tricuspid Valve RAP Estimate: 5.00 mmHg TR Peak Gr.: 23.66 mmHg RVSP: 28.66 mmHg PA Pressure: 28.66 mmHg Left Ventricle The left ventricle is normal size. There is normal LV segmental wall motion. Mild concentric left ventricular hypertrophy. Left ventricular systolic function is normal. The left ventricular ejection fraction is within the normal range. LVEF is 55-60%. Grade I - abnormal relaxation pattern. Right Ventricle The right ventricle is normal size. The right ventricular systolic function is normal. Atria The left atrium size is normal. The right atrium size is normal. Aortic Valve Mild aortic valve sclerosis. No aortic regurgitation is present. There is no aortic valvular stenosis. Mitral Valve The mitral valve is normal in structure. There is no mitral valve regurgitation noted. No evidence of mitral valve stenosis. Tricuspid Valve The tricuspid valve is normal in structure. Mild tricuspid regurgitation[place] [address] 2 D/M-MODE ECHOCARDIOGRAM Name: KIKO SALDANA Room: [facility]#: [id number] Admission: 01/03/21 Attend Phys: Efraín Posadas, Discharge: Date of : 46 Date of Service: 01/03/21 1628 Report #: [id number] The pulmonary valve is normal in structure. There is no pulmonic valvular regurgitation. Great Vessels The aortic root is normal in size. IVC is normal in size and collapses >50% with inspiration. Pericardium There is no pericardial effusion. <Conclusion> Mild concentric left ventricular hypertrophy. LVEF is 55-60%. <ELECTRONICALLY SIGNED> By: Rad Zarco MD, [facility] 01/03/21 1628 1628 1628 Rad Zarco MD, FACC /INF
== END ==
LOC: M.CT 09-26 13:00 → M.CRD 09-26 14:00 → M.CT 09-27 13:00 → M.CRD 09-27 14:00 → M.CT 10-04 13:00 → M.CRD 10-09 14:00 → M.CT 10-16 14:00 → M.CRD 13:24
PROVIDERS: ATTEND Internal Medicine
DX: Z01.818 Encounter for other preprocedural examination (principal); I07.1 Rheumatic tricuspid insufficiency; N28.1 Cyst of kidney, acquired; M41.85 Other forms of scoliosis, thoracolumbar region; M47.815 Spondylosis without myelopathy or radiculopathy, thoracolumbar region; M47.817 Spondylosis without myelopathy or radiculopathy, lumbosacral region; M43.17 Spondylolisthesis, lumbosacral region; I27.20 Pulmonary hypertension, unspecified; I50.32 Chronic diastolic (congestive) heart failure; R10.33 Periumbilical pain

== ENCOUNTER → 2021-06-12 | Emergency (ER) | payer OTHER ==
[~2021-06-12] VITALS: Ht 182.9 cm; Wt 69.8 kg
[2021-06-12 17:25] VITALS: BP 194/113
== END ==
LOC: M.ERS 17:22
DX: R06.02 Shortness of breath (principal); Z53.21 Procedure and treatment not carried out due to patient leaving prior to being seen by health care provider